=== PATIENT | male | born 1945 | race Caucasian/White ===

== ENCOUNTER 2017-04-16 18:56 | Inpatient (IN) ==
[2017-04-16] MEDS ORDERED: 0.9 % Sodium Chloride 500 ML IVC ONE (19:43)
[2017-04-16 20:10] LABS: Basophils # 0.1 K/mcL (0.0-0.2); Basophils % 1.1 %; Eosinophils # 0.3 K/mcL (0.0-0.6); Eosinophils % 4.8 %; Hemoglobin 14.2 g/dL (12.9-16.9); Immature Granulocytes % 0.3 % (0-4); Lymphocytes % 29.9 %; Mean Corpuscular HGB Conc 33.8 g/dL (31.6-35.5); Mean Corpuscular Hemoglobin 30.5 pg (28.0-33.3); Mean Corpuscular Volume 90.1 fL (83.0-100.0); Mean Platelet Volume 11.4 fL (9.4-12.4); Monocytes # 0.4 K/mcL (0.0-1.3); Monocytes % 6.3 %; Neutrophils # 3.8 K/mcL (1.6-8.9); Platelet Count 138 K/mcL (140-400); Red Blood Count 4.66 M/mcL (4.19-5.50); Red Cell Distribution Width 14.3 % (11.5-14.5); Segmented Neutrophils % 57.6 %
[2017-04-16 20:14] LABS: INR 1.6; Prothrombin Time 17.3 Seconds (9.4-12.1)
--- NOTE | 2017-04-16 20:16 | Emergency Department Note ---
START Narrative - START START: I, Reggie Rojas, examined this patient and my medical decision-making was reviewed with the FELT CUTTING MACHINE OPERATOR/PA/Advanced Practice Nurse/Resident Physician. I agree with the documented findings, disposition and treatment plan as described except to the extent set forth below. 71-year-old male presents emergency Department with concerns of palpitations. Patient was referred to the emergency department by his primary care provider. Patient states he has felt lightheaded and weak over the past few days. He has a heart rate that is around 122 during the evaluation however he does have significant variability during the exam. Patient denies chest pain emergency department. He denies feeling short of breath at rest. Denies recent swelling of his lower extremities. Patient takes multiple medications for control of atrial fibrillation. He has ventricularly paced rhythm that is tachycardic. Patient denies fever, chills, nausea, vomiting, diarrhea. Patient states this is had occurred to him in the past however he does not know the etiology. Patient is pending laboratory evaluation and imaging at this time. He will likely be admitted to the hospital for further care and evaluation of his tachycardia.
[2017-04-16 20:21] LABS: Bilirubin,Urine Negative (Negative); Blood,Urine Negative (Negative); Clarity,Urine Clear (Clear); Color,Urine Yellow (Yellow); Glucose,Urine (UA) >=1000 mg/dL (Normal); Ketones,Urine Negative (Negative); Leukocyte Esterase,Urine Negative (Negative); Nitrite,Urine Negative (Negative); Protein,Urine 30 mg/dL (Neg-Trace); Specific Gravity,Urine 1.023 (1.010-1.025); Urobilinogen,Urine Normal (Normal)
[2017-04-16 20:23] LABS: Bacteria,Urine None Seen per hpf (None-Few); Hyaline Casts,Urine None Seen per lpf (None-Few); RBC,Urine 0-3 per hpf (0-3); Squamous Epithelial Cell,Urine Moderate per lpf (None-Few); WBC,Urine 0-3 per hpf (0-3)
[2017-04-16 20:29] LABS: BUN/Creatinine Ratio 14 (6-26); Blood Urea Nitrogen 22 mg/dL (8-23); Calcium 9.2 mg/dL (8.6-10.3); Carbon Dioxide 25 mEq/L (23-29); Chloride 101 mEq/L (98-107); Glucose 358 mg/dL (70-105); Osmolality,Calculated 296 (280-300); Potassium 4.2 mEq/L (3.5-5.1); Sodium 134 mEq/L (136-145); Troponin I < 0.03 ng/mL (< 0.04); eGFR For African Americans 54 (> 60); eGFR For Non-African Americans 45 (> 60)
[2017-04-16 20:42] LABS: Thyroid Stimulating Hormone 3.898 mcIU/mL (0.340-5.600)
--- NOTE | 2017-04-16 20:43 | Emergency Department Note ---
Disposition Clinical Impression: Tachycardia Afib Qualifiers: Atrial fibrillation type: unspecified Qualified Code(s): I48.91 - Unspecified atrial fibrillation Disposition: Admitted As Inpatient Condition: Fair Referrals: Nova Ames MD [Primary Care Provider] - Forms: ED Satisfaction Letter Time of Disposition: 22:22 General Adult HPI - General Chief complaint: ED Arrhythmia/Palpitations Stated complaint: High heart rate Time Seen by Provider: 04/16/17 19:13 Source: patient, EMS Mode of arrival: EMS Limitations: physical limitation Nursing Notes Reviewed: Yes Vital Signs Reviewed: Yes - History of Present Illness HPI Narrative: 71-year-old male with significant past medical history of stroke with residual left-sided weakness along with hypertension and diabetes presenting to the emergency department with chief complaint of palpitations. Patient states for the past 3 days he is not having palpitations. He denies any chest pain or shortness of breath but does state when he stands he gets very weak and feels dizzy. He states this has happened once previously and his electric meter technician discontinued one medication that he is unsure of what medication this was. Patient was sent here her PCP for evaluation. Patient does have history of pacemaker. Denies any DC or stents. Patient denies any recent illnesses, fevers, abdominal pain. Patient is currently on Coumadin for anticoagulation. Pain Scale: 0 - Related Data Allergies Allergy/AdvReac Type Severity Reaction Status Date / Time Penicillins Allergy Hives Verified 04/16/17 22:12 All systems ED: reviewed and negative except as stated. Constitutional: Reports: weakness Cardiovascular: Reports: palpitations Past Medical History - Past Medical History Attestation: Yes The following information was validated with the patient. Medical history: Reports: atrial fibrillation, GERD, hyperlipidemia, hypertension, TIA Psychiatric history: Reports: depression - Social History Smoking Status: Never smoker Smokeless Tobacco Status: No Alcohol use: Reports: none Drug use: Reports: none Physical Exam - General Limitations: physical limitation General appearance: alert, in no apparent distress - Head Head exam: atraumatic, normocephalic, normal inspection - Eye Eye exam: Present: normal appearance. Absent: scleral icterus, conjunctival injection - ENT ENT exam: mucous membranes dry - Neck Neck exam: Present: normal inspection, full ROM. Absent: tenderness, meningismus - Chest Chest inspection: Present: normal inspection, symmetric chest wall rise. Absent : tenderness, rash - Respiratory Respiratory exam: Present: normal lung sounds bilaterally. Absent: respiratory distress, wheezes - Cardiovascular Cardiovascular exam: Present: tachycardia, normal heart sounds - Abdominal Exam Abdominal exam: Present: soft, Non-Tender. Absent: distention, guarding, rebound - Extremities Exam Extremities exam: Present: other (Left-sided weakness in upper and lower extremities. Baseline for patient.) - Neurological Exam Neurological exam: Present: alert, oriented X3 - Psychiatric Psychiatric exam: Present: normal affect, normal mood - Skin Skin exam: Present: warm, dry Course Course Narrative: 71-year-old male presenting to the emergency department with complaint of palpitations. Patient's EKG is ventricularly paced. Physical exam within normal limits. Patient is tachycardic in the room at 122 bpm but otherwise vital signs stable. Patient has no complaints at this time but does state he feels weak when standing. We will perform basic laboratory workup including CBC , BMP, magnesium, PT/INR. Also perform a chest x-ray. We will try to interrogate the patient's pacemaker as well. Patient is alert and oriented 3 in the room. Disposition pending these results. He agrees with this plan. - Reevaluation(s) Reevaluation #1: Patient's INR subtherapeutic at 1.6. All other labs unchanged from previous. We interrogated the pacemaker which showed most likely rhythm of atrial tachycardia versus atrial fibrillation. Patient does have history of atrial fibrillation. I spoke with the electric meter technician on-call Dr. Acevedo who agrees to start the patient on a Cardizem drip at this time until physician will consult tomorrow morning. We will plan to admit the patient at this time. I spoke to the admitting hospitalist Dr. Villavicencio who agrees to accept the patient this time. Patient is alert and oriented 3 in the room. Stable vital signs. Vital Signs Temperature 97.6 F 04/16/17 18:58 Pulse Rate 122 04/16/17 18:58 Respiratory Rate 20 04/16/17 18:58 Blood Pressure 169/109 04/16/17 18:58 O2 Sat by Pulse Oximetry 97 04/16/17 18:58 Temperature 97.6 F 04/16/17 18:58 Pulse Rate 122 04/16/17 18:58 Respiratory Rate 20 04/16/17 18:58 Blood Pressure 169/109 04/16/17 18:58 O2 Sat by Pulse Oximetry 97 04/16/17 18:58 Oxygen Delivery Oxygen Delivery Room Air Medical Decision Making - Lab Data Result diagrams: 04/16/17 19:56 04/16/17 19:56 Lab Results 04/16/17 04/16/17 04/16/17 Range/Units 19:56 19:56 19:56 WBC 6.6 (4.3-11.1) K/mcL RBC 4.66 (4.19-5.50) M/mcL Hgb 14.2 (12.9-16.9) g/dL Hct 42.0 (37.5-50.1) % MCV 90.1 (83.0-100.0) fL MCH 30.5 (28.0-33.3) pg MCHC 33.8 (31.6-35.5) g/dL RDW 14.3 (11.5-14.5) % Plt Count 138 L (140-400) K/mcL MPV 11.4 (9.4-12.4) fL Immature Gran % 0.3 (0-4) % Seg Neutrophils % 57.6 % Lymphocytes % 29.9 % Monocytes % 6.3 % Eosinophils % 4.8 % Basophils % 1.1 % Neutrophils # 3.8 (1.6-8.9) K/mcL Lymphocytes # 2.0 (0.6-4.6) K/mcL Monocytes # 0.4 (0.0-1.3) K/mcL Eosinophils # 0.3 (0.0-0.6) K/mcL Basophils # 0.1 (0.0-0.2) K/mcL PT 17.3 H (9.4-12.1) Seconds INR 1.6 APTT 31.0 (26.0-36.0) Seconds Sodium 134 L (136-145) mEq/L Potassium 4.2 (3.5-5.1) mEq/L Chloride 101 (98-107) mEq/L Carbon Dioxide 25 (23-29) mEq/L BUN 22 (8-23) mg/dL Creatinine 1.54 H (0.70-1.30) mg/dL Est GFR ( Amer) 54 L (> 60) Est GFR (Non-Af Amer) 45 L (> 60) BUN/Creatinine Ratio 14 (6-26) Glucose 358 H (70-105) mg/dL Calculated Osmolality 296 (280-300) Calcium 9.2 (8.6-10.3) mg/dL Magnesium (1.6-2.6) mg/dL Troponin I < 0.03 (< 0.04) ng/mL TSH 3.898 (0.340-5.600) mcIU/mL Urine Color (Yellow) Urine Clarity (Clear) Urine pH (5.0-8.0) pH Units Ur Specific [place] (1.010-1.025) Urine Protein (Neg-Trace) mg/dL Urine Glucose (UA) (Normal) mg/dL Urine Ketones (Negative) mg/dL Urine Blood (Negative) Urine Nitrite (Negative) Urine Bilirubin (Negative) Urine Urobilinogen (Normal) mg/dL Ur Leukocyte Esterase (Negative) Urine Microscopic RBC (0-3) per hpf Urine Microscopic WBC (0-3) per hpf Ur Squamous Epith Cells (None-Few) per lpf Urine Bacteria (None-Few) per hpf Hyaline Casts (None-Few) per lpf Ur Culture Indicated? (NO) 04/16/17 04/16/17 Range/Units 19:56 20:06 WBC (4.3-11.1) K/mcL RBC (4.19-5.50) M/mcL Hgb (12.9-16.9) g/dL Hct (37.5-50.1) % MCV (83.0-100.0) fL MCH (28.0-33.3) pg MCHC (31.6-35.5) g/dL RDW (11.5-14.5) % Plt Count (140-400) K/mcL MPV (9.4-12.4) fL Immature Gran % (0-4) % Seg Neutrophils % % Lymphocytes % % Monocytes % % Eosinophils % % Basophils % % Neutrophils # (1.6-8.9) K/mcL Lymphocytes # (0.6-4.6) K/mcL Monocytes # (0.0-1.3) K/mcL Eosinophils # (0.0-0.6) K/mcL Basophils # (0.0-0.2) K/mcL PT (9.4-12.1) Seconds INR APTT (26.0-36.0) Seconds Sodium (136-145) mEq/L Potassium (3.5-5.1) mEq/L Chloride (98-107) mEq/L Carbon Dioxide (23-29) mEq/L BUN (8-23) mg/dL Creatinine (0.70-1.30) mg/dL Est GFR ( Amer) (> 60) Est GFR (Non-Af Amer) (> 60) BUN/Creatinine Ratio (6-26) Glucose (70-105) mg/dL Calculated Osmolality (280-300) Calcium (8.6-10.3) mg/dL Magnesium 1.8 (1.6-2.6) mg/dL Troponin I (< 0.04) ng/mL TSH (0.340-5.600) mcIU/mL Urine Color Yellow (Yellow) Urine Clarity Clear (Clear) Urine pH 6.0 (5.0-8.0) pH Units Ur Specific [place] 1.023 (1.010-1.025) Urine Protein 30 H (Neg-Trace) mg/dL Urine Glucose (UA) >=1000 H (Normal) mg/dL Urine Ketones Negative (Negative) mg/dL Urine Blood Negative (Negative) Urine Nitrite Negative (Negative) Urine Bilirubin Negative (Negative) Urine Urobilinogen Normal (Normal) mg/dL Ur Leukocyte Esterase Negative (Negative) Urine Microscopic RBC 0-3 (0-3) per hpf Urine Microscopic WBC 0-3 (0-3) per hpf Ur Squamous Epith Cells Moderate H (None-Few) per lpf Urine Bacteria None Seen (None-Few) per hpf Hyaline Casts None Seen (None-Few) per lpf Ur Culture Indicated? NO (NO) - EKG Data EKG #1 EKG attestation: Yes I reviewed and interpreted this EKG. EKG results narrative: Ventricularly paced. 122 bpm. CA interval 194, QRS 186, QTc 453. Does not meet Sgarbossa criteria. Compared to previous EKG dated on 12/16/2013. New tachycardia but otherwise no change.
[2017-04-16] MEDS ORDERED: 0.9 % Sodium Chloride 500 ML ONE (22:36)
--- NOTE | 2017-04-17 00:18 | Internal Med History&Physical ---
Date of Encounter: 04/16/17 Time of Encounter: 23:40 Assessment and Plan (1) Afib Current visit: Yes Status: Acute Patient with tachycardia with ventricular paced rhythm with underlying atrial tachycardia or A. fib per pacemaker interrogation. Started on intravenous Cardizem drip per cardiology recommendations. Will continue. High risk for complications. Cardiology consult. On anticoagulation with Coumadin. Will continue Qualifiers: Atrial fibrillation type: paroxysmal Qualified Code(s): I48.0 - Paroxysmal atrial fibrillation (2) Tachycardia Current visit: Yes Status: Acute (3) Chronic kidney disease, stage III (moderate) Current visit: Yes Status: Chronic At baseline. Monitor renal function. Avoid nephrotoxic agents (4) Diabetes mellitus Current visit: Yes Status: Chronic Uncontrolled. Will place patient on his long-acting insulin and add sliding scale coverage. Monitor blood sugars closely. Check A1c. Qualifiers: Diabetes mellitus type: type 2 Diabetes mellitus complication status: with kidney complications Diabetes mellitus complication detail: with chronic kidney disease Diabetes mellitus ferry terminal agent insulin use: with fci use Chronic kidney disease stage: stage 3 (moderate) Qualified Code(s): E11.22 - Type 2 diabetes mellitus with diabetic chronic kidney disease; N18.3 - Chronic kidney disease, stage 3 (moderate); N18.3 - Chronic kidney disease, stage 3 ( moderate); Z79.4 - long term care social worker (current) use of insulin; Z79.4 - [facility] ( current) use of insulin; Z79.4 - [facility] (current) use of insulin; Z79.4 - long term care social worker (current) use of insulin (5) Essential hypertension Current visit: Yes Status: Chronic Monitor blood pressure. Resume home medications. Internal Medicine - H&P: HPI Chief complaint: Palpitations Admitted From: Emergency Dept Plans for Post Hospital Care: Home History of present illness: Mr. Vigil is a 71 year old male patient with history of diabetes, hypertension , permanent pacemaker who presented to the ER with complaints of palpitations. His says that he has been having episodes of palpitations over the past 2-3 months that have been intermittent but over the past day or 2, he has had persistent palpitations. He also complains of dizziness and lightheadedness. No chest pain. No shortness of breath. He underwent pacemaker interrogation and check 6 months back. No recent change to his medications. Past Med Surg Social Fam HX - Past Medical History Attestation: Yes The following information was validated with the patient. Source: patient Medical history: atrial fibrillation, GERD, hyperlipidemia, hypertension, TIA Psychiatric history: depression - Social History Smoking Status: Never smoker Smokeless Tobacco Status: No Alcohol use: none Drug use: none - Additional Family History Additional family history: Reviewed and found to be noncontributory at this time Internal Medicine - H&P: Meds Albuterol Sulfate [Albuterol Inhaler] 2 puff IH Q4H PRN 04/16/17 [History] Allopurinol [Zyloprim 300 MG] 300 mg PO DAILY 04/16/17 [History] Aspirin Enteric Coated [Aspirin EC] 81 mg PO DAILY 04/16/17 [History] Baclofen [Baclofen] 20 mg PO BID 04/16/17 [History] GlipiZIDE [Glipizide ER] 10 mg PO DAILY 04/16/17 [History] Insulin DETEMIR [Levemir Flextouch] 30 unit SQ BID 04/16/17 [History] Lisinopril [Zestril] 10 mg PO DAILY 04/16/17 [History] Metoprolol Succinate [Metoprolol Succinate] 50 mg PO DAILY 04/16/17 [History] PARoxetine HCl [Paroxetine HCl] 40 mg PO DAILY 04/16/17 [History] Pantoprazole Sodium [Pantoprazole Sodium] 40 mg PO DAILY 04/16/17 [History] Rosuvastatin Calcium [Rosuvastatin Calcium] 40 mg PO HS 04/16/17 [History] Terazosin HCl [Terazosin HCl] 10 mg PO HS 04/16/17 [History] Warfarin [Coumadin] 3 mg PO 1800 04/16/17 [History] 3 Allergy/AdvReac Type Severity Reaction Status Date / Time Penicillins Allergy Hives Verified 04/16/17 22:12 All Systems PM: A 10-system review of systems was performed and is negative for pertinent findings except as documented above in the HPI. - Constitutional Constitutional: no chills, no fever(s), no night sweats - EENT Eyes: no change in vision, no discharge, no pain, no photophobia Ears: no ear discharge, no ear pain, no tinnitus Nose, mouth and throat: no dysphagia, no nasal discharge, no neck pain, no sore throat - Cardiovascular Cardiovascular ROS IM: lightheadedness, palpitations, no chest pain, no diaphoresis, no dyspnea, no syncope - Respiratory Respiratory: no cough, no dyspnea, no wheezing, no excessive phlegm production - Gastrointestinal Gastrointestinal: no abdominal pain, no diarrhea, no hematemesis, no hematochezia, no melena, no nausea, no vomiting - Musculoskeletal Musculoskeletal ROS IM: no numbness, no tingling - Integumentary Integumentary IM: no rash, no unusual bruising - Neurological Neurological ROS: no confusion, no convulsions, no focal weakness, no numbness, no tingling, no tremor(s) - Hematologic/Lymphatic Hematologic/Lymphatic: no easy bruising - Constitutional Vitals: Temp Pulse Resp BP Pulse Ox 97.6 F 120 20 110/83 94 04/16/17 18:58 04/16/17 22:21 04/17/17 00:02 04/17/17 00:02 04/16/17 22:21 General appearance: Present: cooperative, mild distress, A&O X 3, answers questions appropriately - Neck Neck exam general surgery: Present: supple, trachea midline. Absent: lymphadenopathy - Respiratory Respiratory exam: Present: CTAB. Absent: accessory muscle use, rales, rhonchi, wheezes - Cardiovascular Cardiovascular exam: Present: RRR, +S1, +S2, tachycardia. Absent: diastolic murmur, gallop, rubs, systolic murmur - GI/Abdominal GI/Abdominal exam: Present: normal bowel sounds, soft, no peritoneal signs. Absent: distended, tenderness - Extremities Exam Extremities exam: Present: warm, radial pulses palpable and symmetrical. Absent : calf tenderness, cyanotic, pedal edema - Neurological Exam Neurological exam: Present: CN II-XII intact, oriented X3, no focal deficits. Absent: facial droop, speech deficit Internal Med - H&P Results - Labs CBC & Chem 7: 04/16/17 19:56 04/16/17 19:56 - EKG Data -: EKG Interpreted by Myself - EKG Data EKG comments: 04/17/17 00:25 V-paced tachycardia
[2017-04-17] MEDS ORDERED: Naloxone 0.4 MG/ML INJ IVP PRN (00:28)
[2017-04-17] MEDS ORDERED: D5% in Water 1,000 ML IVC PRN (00:31)
[2017-04-17] MEDS ORDERED: *HR* Dextrose 50 % in Water (Syg) 50 ML SYRINGE IVP PRN (00:31)
[2017-04-17] MEDS ORDERED: Dextrose Gel 15 GM/37.5 ML TUBE PO PRN ×2 (00:31)
[2017-04-17] MEDS ORDERED: NON-FORMULARY MEDICATION 1 EACH EACH (Insulin Detemir [Levemir Flextouch] 30 UNIT) SQ SCH (00:32)
[2017-04-17] MEDS: Insulin DETEMIR 100 UNIT/ML X5UNITS SQ SCH ×3 (01:38→21:24)
[2017-04-17] MEDS ORDERED: *HR* Warfarin 3 MG TABLET PO ONE ×2 (02:00→18:00)
[2017-04-17] MEDS ORDERED: *HR* Metoprolol 5 MG/5 ML VIAL IVP PRN (02:02)
[2017-04-17] MEDS: Metoprolol XL (24 HR) Succ 50 MG TAB.ER.24H PO SCH ×2 (04:41→08:27)
[2017-04-17 04:58] LABS: INR 1.6; Prothrombin Time 17.2 Seconds (9.4-12.1)
[2017-04-17] MEDS ORDERED: 0.9 % Sodium Chloride 500 ML ONE (05:45)
[2017-04-17] MEDS: Baclofen 10 MG TABLET PO SCH ×2 (08:27→21:24)
[2017-04-17] MEDS: Aspirin Enteric Coated 81 MG Tablet PO SCH (08:27)
[2017-04-17] MEDS: Insulin LISPRO 300 UNITS/3 ML VIAL SQ SCH ×4 (08:30→21:18)
[2017-04-17] MEDS ORDERED: Metoprolol XL (24 HR) Succ 50 MG TAB.ER.24H PO SCH (09:00)
--- NOTE | 2017-04-17 09:19 | Cardiology Consult Note ---
<Pau Sheridan Antoni - Last Filed: 04/17/17 09:44> Date of Encounter: 04/17/17 Time of Encounter: 09:00 Assessment and Plan (1) Afib Current Visit: Yes Status: Acute Hx of PAF, has been on Coumadin for AC (INR monitored by PCP). Per device report, increased episodes of AT/AF--146 days with >6 hours AT/AF. Sotalol d/c'ed June 2015 due to worsening renal function, increased episodes of PAF. Presented with increase in palpitations over the past 2-3 weeks, also reports recent flu-like symptoms. 12 hour tele: avg ML=085 afib, paced rhythm. Recommend rate control strategy. Will increase betablocker. Wean off cardizem gtt to keep HR less than 100--may need to add oral cardizem. Will decrease ACEi to allow for uptitration of BB, CCB. INR subtherapuetic, 1.6, goal 2-3. Pharmacy to dose coumadin as inpatient. Qualifiers: Atrial fibrillation type: persistent Qualified Code(s): I48.1 - Persistent atrial fibrillation (2) Chronic kidney disease, stage III (moderate) Current Visit: Yes Status: Chronic SCr stable. (3) Essential hypertension Current Visit: Yes Status: Chronic Elevated upon admission. Now controlled. Continue to monitor and change medications accordingly. (4) CAD (coronary artery disease) Current Visit: Yes Status: Chronic Hx of CABG in 2006. [facility] 2013: s/p patent 3 of 3 bypass grafts--medical management recommended. Denies chest pain/discomfort. Continue home CV medications including asa, statin , betablocker. Qualifiers: Coronary Disease-Associated Artery/Lesion type: bypass graft [place] vs. transplanted heart: [place] heart Associated angina: without angina Qualified Code(s): I25.810 - Atherosclerosis of coronary artery bypass graft(s) without angina pectoris Discussion w patient/family: The assessment and plan as outlined above was discussed with the patient and/or family members who expressed understanding and agreement. All questions were answered. Thank you for involving us in the care of your patient. Please call with any questions. The patient will be discussed and reviewed with Dr. Acevedo; changes to be made accordingly. History of Present Illness Consult date: 04/17/17 Requesting physician: Juani Salas Consult reason: afib Chief complaint: palpitations History of present illness: Mr. Vigil is a 71 year old male with PMHx significant for CKD, HTN, PAF ( coumadin), CAD s/p CABG (2006), hx of recovered ischemic cardiomyopathy, FELICITY, and heart block s/p BiV PPM who presented to the ED with complaints of palpitations for the past several weeks. He notes recent flu-like illness--cough , congestion, aches--since then, palpitations have been more frequent. Associated symptoms include mild shortness of breath. He denies chest pain discomfort or increase in leg edema. Prior CV testing: TTE 11/06/13: LVEF 60%, mild TR, normal wall motion LHC 07/2012: s/p 3 of 3 patent bypass grafts; SVG-mLCx patent, SVG-1st diagonal patent, and CHING-mLAD patent. Past Med Surg Social Fam HX - Past Medical History Attestation: Yes The following information was validated with the patient. Source: patient Medical history: atrial fibrillation, cardiomyopathy, coronary artery disease, GERD, hyperlipidemia, hypertension, TIA Psychiatric history: depression - Social History Smoking Status: Never smoker Smokeless Tobacco Status: No Alcohol use: none Drug use: none - Family History Father Hx Family Cardiac Disorders: Yes (Pacemaker) Mother History Unknown: Yes Adopted: No Hx Family Cardiac Disorders: Yes ("Arteries clogged") Hx Family Endocrine Disorder: Yes (Diabetic) Medications and Allergies Albuterol Sulfate [Albuterol Inhaler] 2 puff IH Q4H PRN 04/16/17 [History] Allopurinol [Zyloprim 300 MG] 300 mg PO DAILY 04/16/17 [History] Aspirin Enteric Coated [Aspirin EC] 81 mg PO DAILY 04/16/17 [History] Baclofen [Baclofen] 20 mg PO BID 04/16/17 [History] GlipiZIDE [Glipizide ER] 10 mg PO DAILY 04/16/17 [History] Insulin DETEMIR [Levemir Flextouch] 30 unit SQ BID 04/16/17 [History] Lisinopril [Zestril] 10 mg PO DAILY 04/16/17 [History] Metoprolol Succinate [Metoprolol Succinate] 50 mg PO DAILY 04/16/17 [History] PARoxetine HCl [Paroxetine HCl] 40 mg PO DAILY 04/16/17 [History] Pantoprazole Sodium [Pantoprazole Sodium] 40 mg PO DAILY 04/16/17 [History] Rosuvastatin Calcium [Rosuvastatin Calcium] 40 mg PO HS 04/16/17 [History] Terazosin HCl [Terazosin HCl] 10 mg PO HS 04/16/17 [History] Warfarin [Coumadin] 3 mg PO 1800 04/16/17 [History] 3 Allergy/AdvReac Type Severity Reaction Status Date / Time Penicillins Allergy Hives Verified 04/16/17 22:12 All Systems Review: The remainder of the systems were reviewed and are negative - Cardiovascular Cardiovascular: as per HPI Physical Examination Vital Signs, Last 4 Hours Temp Pulse Resp BP Pulse Ox 04/17/17 06:47 97.5 F L 106 17 120/78 95 General: Conversant HEENT: Atraumatic, Normocephaly Cardiac: Other (irregulary irregular) Neuro: Alert and responsive Abdomen: Soft Skin: No rashes noted on visualized skin Musculoskeletal: No Chest Wall Tenderness Extremities: No Edema, Normal Pulses Results 04/16/17 19:56 04/16/17 19:56 Lab Results 04/17/17 04/17/17 03:46 03:46 INR 1.6 Troponin I 0.03 Active Medications Albuterol Sulfate (Albuterol Inhaler) 2 puff IH [id number] PRN PRN Reason: Shortness Of Breath Stop: 10/17/17 00:31 Allopurinol (Zyloprim) 300 mg PO DAILY STACIE Stop: 10/17/17 09:01 Last Admin: 04/17/17 08:27 Dose: 300 mg Aspirin (Aspirin Ec) 81 mg PO DAILY STACIE Stop: 10/17/17 09:01 Last Admin: 04/17/17 08:27 Dose: 81 mg Baclofen (Lioresal) 20 mg PO BID STACIE Stop: 10/17/17 09:01 Last Admin: 04/17/17 08:27 Dose: 20 mg Dextrose/Water (Dextrose 50% (Syg)) 25 ml IVP AD PRN PRN Reason: Hypoglycemia Stop: 10/17/17 00:32 Glucagon (Glucagen) 1 mg IM ONCE PRN PRN Reason: Hypoglycemia Stop: 10/17/17 00:32 Glucose (Gluctose) 15 gm PO ONCE PRN PRN Reason: Hypoglycemia Stop: 10/17/17 00:32 Glucose (Gluctose) 30 gm PO ONCE PRN PRN Reason: Hypoglycemia Stop: 10/17/17 00:32 Diltiazem HCl 125 mg/ Sodium (Chloride) 125 mls @ 5 mls/hr IVC .Q24H STACIE; 5 MG/ HR PRN Reason: Protocol Stop: 10/16/17 22:31 Last Titration: 04/17/17 08:46 Dose: Infused Dextrose (Dextrose 5%) 1,000 mls @ 100 mls/hr IVC .Q10H PRN PRN Reason: HYPOGLYCEMIA Stop: 10/17/17 00:32 Insulin Detemir (Levemir) 30 unit SQ BID [facility] Stop: 10/17/17 00:46 Last Admin: 04/17/17 01:38 Dose: 30 unit Insulin Human Lispro (Humalog) 0 units SQ TIDAC [facility] PRN Reason: Protocol Stop: 10/17/17 07:31 Last Admin: 04/17/17 08:30 Dose: Not Given Insulin Human Lispro (Humalog) 0 units SQ [facility] PRN Reason: Protocol Stop: 10/17/17 21:01 Lisinopril (Zestril) 10 mg PO DAILY [facility] PRN Reason: Protocol Stop: 10/17/17 09:01 Last Admin: 04/17/17 08:27 Dose: 10 mg Metoprolol Succinate (Toprol Xl) 50 mg PO DAILY [facility] Stop: 10/17/17 04:01 Last Admin: 04/17/17 08:27 Dose: 50 mg Metoprolol Tartrate (Lopressor) 5 mg IVP Q6HR PRN PRN Reason: Tachyarrhythmias Stop: 10/17/17 02:03 Last Admin: 04/17/17 02:21 Dose: 5 mg Naloxone HCl (Narcan) 0.4 mg IVP Q2MIN PRN PRN Reason: SEE COMMENTS Stop: 10/17/17 00:29 Omeprazole (Prilosec) 40 mg PO DAILY [facility] Stop: 10/17/17 09:01 Last Admin: 04/17/17 08:27 Dose: 40 mg Paroxetine HCl (Paxil) 40 mg PO DAILY [facility] Stop: 10/17/17 09:01 Last Admin: 04/17/17 08:27 Dose: 40 mg Rosuvastatin Calcium (Crestor) 40 mg PO [facility] Stop: 10/17/17 21:01 Terazosin HCl (Hytrin) 10 mg PO HS [facility] Stop: 10/17/17 21:01 Warfarin Sodium (Coumadin Perpt) 1 each PO DAILY@1800 PRN PRN Reason: SEE COMMENTS Stop: 10/17/17 18:01 Warfarin Sodium (Coumadin) 3 mg PO ONCE@1800 ONE Stop: 04/17/17 18:01 - Imaging and Cardiology Echo: report reviewed Cardiac cath: report reviewed Other Results: 12 hour tele: avg CV=019 afib, paced rhythm. - EKG Interpretation EKG results cardiology: personally reviewed Consult Discharge Plan - Plan Referrals: Nova Ames MD [Primary Care Provider] - <Fay Acevedo - Last Filed: 04/17/17 11:02> Date of Encounter: 04/17/17 - Attending Attestation I examined this patient and my medical decision-making was reviewed with the DOORSHAKER. I agree with the documented findings, disposition and treatment plan as described. Mr. Vigil is known to me from the outpatient setting. He has a known history of PAF and was maintained on sotalol until about 2014 when renal function started to worsen. He was placed on metoprolol and doing well since then. More recently, the patient states he developed a viral type illness with general malaise, dizziness, cough and sinusitis. This was associated with palpitations which prompted his visit. Presently HR's 110's. Will increase beta sarah and consider addition of PO cardizem. ACEI will be decreased to accommodate for blood pressure with these medication changes. Echo pending. Pharmacy to dose coumadin. Assessment and Plan Discussion w patient/family: The assessment and plan as outlined above was discussed with the patient and/or family members who expressed understanding and agreement. All questions were answered. Thank you for involving us in the care of your patient. Please call with any questions. History of Present Illness History of present illness: Mr. Vigil is a 71 year old male All Systems Review: The remainder of the systems were reviewed and are negative Results 04/16/17 19:56 04/16/17 19:56 Lab Results 04/17/17 04/17/17 03:46 03:46 INR 1.6 Troponin I 0.03
[2017-04-17] MEDS ORDERED: 0.9 % Sodium Chloride 500 ML IVC ONE (11:39)
--- NOTE | 2017-04-17 15:18 | Internal Med Progress Note ---
Date of Encounter: 04/17/17 Time of Encounter: 13:30 - Assessment and plan (1) Afib Current Visit: Yes Status: Acute Assessment and plan: per hx. presented with palpitations. Evaluated by Cardiology who noted recent device report, increased episodes of AT/Af. Home BB increased per Cardiology. Wean off cardizem gtt to keep HR less than 100--may need to add oral cardizem. ACEi to allow for uptitration of BB, CCB. Cont home Coumadin Qualifiers: Atrial fibrillation type: persistent Qualified Code(s): I48.1 - Persistent atrial fibrillation (2) CAD (coronary artery disease) Current Visit: Yes Status: Chronic Assessment and plan: per hx. Denies CP. Continue home ASA, BB, statin Qualifiers: Coronary Disease-Associated Artery/Lesion type: bypass graft [place] vs. transplanted heart: [place] heart Associated angina: without angina Qualified Code(s): I25.810 - Atherosclerosis of coronary artery bypass graft(s) without angina pectoris (3) Chronic kidney disease, stage III (moderate) Current Visit: Yes Status: Chronic Assessment and plan: per hx. Renal function stable. Avoid nephrotoxic agents as possible. Intermittently monitor renal function (4) Diabetes mellitus Current Visit: Yes Status: Chronic Assessment and plan: per hx. Blood sugars uncontrolled. Holding home oral hypoglycemics. Cont home long-acting. SSI. Monitor blood sugar and titrate PRN Qualifiers: Diabetes mellitus type: type 2 Diabetes mellitus complication status: with kidney complications Diabetes mellitus complication detail: with chronic kidney disease Diabetes mellitus intermission coordinator insulin use: with snf use Chronic kidney disease stage: stage 3 (moderate) Qualified Code(s): E11.22 - Type 2 diabetes mellitus with diabetic chronic kidney disease; N18.3 - Chronic kidney disease, stage 3 (moderate); N18.3 - Chronic kidney disease, stage 3 ( moderate); Z79.4 - residential (current) use of insulin; Z79.4 - residential ( current) use of insulin; Z79.4 - exterminator termite (current) use of insulin; Z79.4 - residential (current) use of insulin (5) Essential hypertension Current Visit: Yes Status: Chronic Assessment and plan: per hx. BP elevated on arrival and now hypotensive with Cardizem drip. BP improved with IV fluid bolus. Cont BB at increased dose. Monitor BP (6) DVT prophylaxis Current Visit: Yes Status: Acute Assessment and plan: coumadin - Subjective Interval history: Seen and examined at bedside. Patient is new to me, information obtained from chart review and patient report. Patient says he feels about the same, still with palpitation and fluttering sensation in her heart. No shortness of breath. No chest pain. - Constitutional Vitals: Temp Pulse Resp BP Pulse Ox 97.6 F 112 17 87/57 96 04/17/17 11:22 04/17/17 11:22 04/17/17 11:22 04/17/17 11:22 04/17/17 11:22 General appearance: Present: cooperative, A&O X 3, answers questions appropriately - Head Head exam: Present: atraumatic, normocephalic - Eye Eye exam: Present: PERRL, conjuntiva pink, sclera anicteric Pupils: Present: PERRL - Neck Neck exam general surgery: Present: supple, trachea midline. Absent: lymphadenopathy - Respiratory Respiratory exam: Present: CTAB. Absent: accessory muscle use, rales, rhonchi, wheezes - Cardiovascular Cardiovascular exam: Present: irregular rhythm, +S1, +S2, tachycardia. Absent: diastolic murmur, gallop, rubs, systolic murmur - GI/Abdominal GI/Abdominal exam: Present: normal bowel sounds, soft, no peritoneal signs. Absent: distended, tenderness - Extremities Exam Extremities exam: Present: warm, radial pulses palpable and symmetrical. Absent : calf tenderness, cyanotic, pedal edema - Neurological Exam Neurological exam: Present: CN II-XII intact, oriented X3, no focal deficits. Absent: pronater drift, facial droop, speech deficit - Skin Skin exam: Present: dry, intact Internal Medicine: Result - Labs CBC & Chem 7: 04/16/17 19:56 04/16/17 19:56 Labs: Cardiac Enzymes 04/17/17 Range/Units 03:46 Troponin I 0.03 (< 0.04) ng/mL - ABG Interpretation ABG results: PT/INR, D-dimer PT 17.2 Seconds (9.4-12.1) H 04/17/17 03:46 Consult Discharge Plan - Plan Referrals: Nova Ames MD [Primary Care Provider] -
[2017-04-17] MEDS ORDERED: Warfarin perPT PO PRN (18:00)
--- NOTE | 2017-04-17 19:49 | Electrocardiograph Report ---
[place] [id number] Test Date: 2017-04-16 Pat Name: Andrew Vigil Department: 104 Room: 3B Gender: M Bus Driver Supervisor: : 1945 Requested By: Reggie Rojas Order Number: [id number] Reading MD: Yousif Baxter MD Measurements Intervals [place] Rate: 122 P: 234 MT: 194 QRS: 218 QRSD: 186 T: 61 QT: 380 QTc: 453 Interpretive Statements ELECTRONIC VENTRICULAR PACEMAKER Electronically Signed On 04-17-2017 19:47:13 EST by Yousif Baxter MD
[2017-04-17] MEDS: Acetaminophen 325 MG TABLET PO PRN (21:31)
[2017-04-18 06:06] LABS: INR 2.1; Prothrombin Time 22.8 Seconds (9.4-12.1)
[2017-04-18] MEDS: Metoprolol XL (24 HR) Succ 50 MG TAB.ER.24H PO SCH (08:34)
[2017-04-18] MEDS: Baclofen 10 MG TABLET PO SCH ×2 (08:34→21:53)
[2017-04-18] MEDS: Aspirin Enteric Coated 81 MG Tablet PO SCH (08:34)
[2017-04-18] MEDS: Insulin DETEMIR 100 UNIT/ML X5UNITS SQ SCH ×2 (08:43→21:54)
[2017-04-18] MEDS: Insulin LISPRO 300 UNITS/3 ML VIAL SQ SCH ×4 (08:43→21:54)
--- NOTE | 2017-04-18 10:29 | Cardiology Progress Note ---
Date of Encounter: 04/18/17 Time of Encounter: 09:00 Assessment and Plan (1) Afib Current Visit: Yes Status: Acute Hx of PAF, has been on Coumadin for AC (INR monitored by PCP). Per device report, increased episodes of AT/AF--146 days with >6 hours AT/AF. Sotalol d/c'ed June 2015 due to worsening renal function, increased episodes of PAF. Presented with increase in palpitations over the past 2-3 weeks, also reports recent flu-like symptoms. 12 hour tele: avg HR=73 afib, paced rhythm. Reviewed device check with Dr. Humphries--episodes of tachycardia are sinus. Will increase Toprol XL for improved rate control. Will decrease ACEi to allow for uptitration of BB, CCB. INR subtherapuetic, 1.6, goal 2-3. Pharmacy to dose coumadin as inpatient. Qualifiers: Atrial fibrillation type: persistent Qualified Code(s): I48.1 - Persistent atrial fibrillation (2) Chronic kidney disease, stage III (moderate) Current Visit: Yes Status: Chronic SCr stable. (3) Essential hypertension Current Visit: Yes Status: Chronic Elevated upon admission. Now controlled. Continue to monitor and change medications accordingly. (4) CAD (coronary artery disease) Current Visit: Yes Status: Chronic Hx of CABG in 2006. [facility] 2012: s/p patent 3 of 3 bypass grafts--medical management recommended. Denies chest pain/discomfort. Continue home CV medications including asa, statin , betablocker. Qualifiers: Coronary Disease-Associated Artery/Lesion type: bypass graft [place] vs. transplanted heart: [place] heart Associated angina: without angina Qualified Code(s): I25.810 - Atherosclerosis of coronary artery bypass graft(s) without angina pectoris Discussion w patient/family: The assessment and plan as outlined above was discussed with the patient and/or family members who expressed understanding and agreement. All questions were answered. Thank you for involving us in the care of your patient. Please call with any questions. The patient will be discussed and reviewed with Dr. Acevedo; changes to be made accordingly. Subjective Principal diagnosis: Afib with RVR Interval history: Seen and examined. No reported events overnight. Cardizem gtt d/ce'd due to hypotension yesterday. Patient reports headache this AM. Objective Vital Signs, Last 4 Hours Temp Pulse Resp BP Pulse Ox 04/18/17 07:23 98.1 F 82 16 115/68 93 General: Conversant, No Apparent Distress HEENT: Atraumatic, Normocephaly, Mucus Membranes Moist Cardiac: Other (irregularly irregular) Lungs: Normal Breath Sounds Neuro: Alert and responsive Abdomen: Soft Skin: No rashes noted on visualized skin Musculoskeletal: No Chest Wall Tenderness Extremities: No Edema, Normal Pulses Results 04/16/17 19:56 04/16/17 19:56 Lab Results 04/18/17 05:26 INR 2.1 Active Medications Acetaminophen (Tylenol) 650 mg PO Q6HR PRN PRN Reason: Mild Pain Stop: 10/17/17 19:53 Last Admin: 04/17/17 21:31 Dose: 650 mg Albuterol Sulfate (Albuterol Inhaler) 2 puff IH [id number] PRN PRN Reason: Shortness Of Breath Stop: 10/17/17 00:31 Allopurinol (Zyloprim) 300 mg PO DAILY STACIE Stop: 10/17/17 09:01 Last Admin: 04/18/17 08:34 Dose: 300 mg Aspirin (Aspirin Ec) 81 mg PO DAILY [facility] Stop: 10/17/17 09:01 Last Admin: 04/18/17 08:34 Dose: 81 mg Baclofen (Lioresal) 20 mg PO BID [facility]IE Stop: 10/17/17 09:01 Last Admin: 04/18/17 08:34 Dose: 20 mg Dextrose/Water (Dextrose 50% (Syg)) 25 ml IVP AD PRN PRN Reason: Hypoglycemia Stop: 10/17/17 00:32 Glucagon (Glucagen) 1 mg IM ONCE PRN PRN Reason: Hypoglycemia Stop: 10/17/17 00:32 Glucose (Gluctose) 15 gm PO ONCE PRN PRN Reason: Hypoglycemia Stop: 10/17/17 00:32 Glucose (Gluctose) 30 gm PO ONCE PRN PRN Reason: Hypoglycemia Stop: 10/17/17 00:32 Dextrose (Dextrose 5%) 1,000 mls @ 100 mls/hr IVC .Q10H PRN PRN Reason: HYPOGLYCEMIA Stop: 10/17/17 00:32 Insulin Detemir (Levemir) 30 unit SQ BID [facility] Stop: 10/17/17 00:46 Last Admin: 04/18/17 08:43 Dose: 30 unit Insulin Human Lispro (Humalog) 0 units SQ TIDAC [facility] PRN Reason: Protocol Stop: 10/17/17 07:31 Last Admin: 04/18/17 08:43 Dose: Not Given Insulin Human Lispro (Humalog) 0 units SQ HS [facility] PRN Reason: Protocol Stop: 10/17/17 21:01 Last Admin: 04/17/17 21:18 Dose: Not Given Lisinopril (Zestril) 2.5 mg PO DAILY STACIE PRN Reason: Protocol Stop: 10/18/17 09:01 Last Admin: 04/18/17 08:34 Dose: 2.5 mg Metoprolol Succinate (Toprol Xl) 50 mg PO DAILY [facility] Stop: 10/17/17 04:01 Last Admin: 04/18/17 08:34 Dose: 50 mg Metoprolol Tartrate (Lopressor) 5 mg IVP Q6HR PRN PRN Reason: Tachyarrhythmias Stop: 10/17/17 02:03 Last Admin: 04/17/17 02:21 Dose: 5 mg Naloxone HCl (Narcan) 0.4 mg IVP Q2MIN PRN PRN Reason: SEE COMMENTS Stop: 10/17/17 00:29 Omeprazole (Prilosec) 40 mg PO DAILY [facility] Stop: 10/17/17 09:01 Last Admin: 04/18/17 08:34 Dose: 40 mg Paroxetine HCl (Paxil) 40 mg PO DAILY [facility] Stop: 10/17/17 09:01 Last Admin: 04/18/17 08:34 Dose: 40 mg Rosuvastatin Calcium (Crestor) 40 mg PO HS [facility] Stop: 10/17/17 21:01 Last Admin: 04/17/17 21:24 Dose: 40 mg Terazosin HCl (Hytrin) 10 mg PO HS [facility] Stop: 10/17/17 21:01 Last Admin: 04/17/17 21:25 Dose: 10 mg Warfarin Sodium (Coumadin Perpt) 1 each PO DAILY@1800 PRN PRN Reason: SEE COMMENTS Stop: 10/17/17 18:01 - Imaging and Cardiology Echo: report reviewed Other Results: 12 hour tele: avg HR=73 paced. - EKG Interpretation EKG results cardiology: personally reviewed Consult Discharge Plan - Plan Referrals: Nova Ames MD [Primary Care Provider] -
[2017-04-18] MEDS: Acetaminophen 325 MG TABLET PO PRN (12:50)
[2017-04-18] MEDS ORDERED: Metoprolol XL (24 HR) Succ 25 MG TAB.ER.24H PO ONE (15:00)
--- NOTE | 2017-04-18 16:34 | Internal Med Progress Note ---
Date of Encounter: 04/18/17 Time of Encounter: 16:32 - Assessment and plan (1) Afib Current Visit: Yes Status: Acute Assessment and plan: per hx. presented with palpitations. Evaluated by Cardiology who noted recent device report, increased episodes of AT/Af. Home BB increased per Cardiology ( home LUKE to allow increase in BB). Patient reported cardiology planning another device interrogation on 04/18/17? Heart rate well controlled with increase in home BB. Continue current medication regimen. Await further recommendations from cardiology. Cont home Coumadin. Qualifiers: Atrial fibrillation type: persistent Qualified Code(s): I48.1 - Persistent atrial fibrillation (2) CAD (coronary artery disease) Current Visit: Yes Status: Chronic Assessment and plan: per hx. Denies CP. Continue home ASA, BB, statin Qualifiers: Coronary Disease-Associated Artery/Lesion type: bypass graft [place] vs. transplanted heart: [place] heart Associated angina: without angina Qualified Code(s): I25.810 - Atherosclerosis of coronary artery bypass graft(s) without angina pectoris (3) Chronic kidney disease, stage III (moderate) Current Visit: Yes Status: Chronic Assessment and plan: per hx. Renal function stable. Avoid nephrotoxic agents as possible. Intermittently monitor renal function (4) Diabetes mellitus Current Visit: Yes Status: Chronic Assessment and plan: per hx. Blood sugars uncontrolled. Holding home oral hypoglycemics. Cont home long-acting. SSI. Monitor blood sugar and titrate PRN Qualifiers: Diabetes mellitus type: type 2 Diabetes mellitus complication status: with kidney complications Diabetes mellitus complication detail: with chronic kidney disease Diabetes mellitus manager terminal insulin use: with [facility] use Chronic kidney disease stage: stage 3 (moderate) Qualified Code(s): E11.22 - Type 2 diabetes mellitus with diabetic chronic kidney disease; N18.3 - Chronic kidney disease, stage 3 (moderate); N18.3 - Chronic kidney disease, stage 3 ( moderate); Z79.4 - supervisor intermediates (current) use of insulin; Z79.4 - halfway ( current) use of insulin; Z79.4 - supervisor intermediates (current) use of insulin; Z79.4 - halfway (current) use of insulin (5) Essential hypertension Current Visit: Yes Status: Chronic Assessment and plan: per hx. BP elevated on arrival and now hypotensive with Cardizem drip. BP improved with IV fluid bolus. Cont BB at increased dose. Monitor BP (6) DVT prophylaxis Current Visit: Yes Status: Acute Assessment and plan: coumadin - Subjective Interval history: Seen and examined at bedside. Seen and examined bedside. He is sitting up in chair at bedside. Still with intermittent palpitations, says he feels like he still in A. fib. Says he is waiting on pacer interrogation. No chest pain or shortness of breath. - Constitutional Vitals: Temp Pulse Resp BP Pulse Ox 98.0 F 74 18 132/87 97 04/18/17 15:26 04/18/17 15:26 04/18/17 15:26 04/18/17 15:26 04/18/17 15:26 General appearance: Present: cooperative, A&O X 3, answers questions appropriately - Head Head exam: Present: atraumatic, normocephalic - Eye Eye exam: Present: PERRL, conjuntiva pink, sclera anicteric Pupils: Present: PERRL - Neck Neck exam general surgery: Present: supple, trachea midline. Absent: lymphadenopathy - Respiratory Respiratory exam: Present: CTAB. Absent: accessory muscle use, rales, rhonchi, wheezes - Cardiovascular Cardiovascular exam: Present: irregular rhythm, +S1, +S2. Absent: diastolic murmur, gallop, rubs, systolic murmur - GI/Abdominal GI/Abdominal exam: Present: normal bowel sounds, soft, no peritoneal signs. Absent: distended, tenderness - Extremities Exam Extremities exam: Present: warm, radial pulses palpable and symmetrical. Absent : calf tenderness, cyanotic, pedal edema - Neurological Exam Neurological exam: Present: CN II-XII intact, oriented X3, no focal deficits. Absent: pronater drift, facial droop, speech deficit - Skin Skin exam: Present: dry, intact Internal Medicine: Result - Labs CBC & Chem 7: 04/16/17 19:56 04/16/17 19:56 - ABG Interpretation ABG results: PT/INR, D-dimer PT 22.8 Seconds (9.4-12.1) H 04/18/17 05:26 Consult Discharge Plan - Plan Referrals: Nova Ames MD [Primary Care Provider] -
[2017-04-18] MEDS ORDERED: *HR* Warfarin 3 MG TABLET PO SCH (18:00)
[2017-04-19 05:26] LABS: Hematocrit 36.2 % (37.5-50.1); Mean Corpuscular HGB Conc 32.9 g/dL (31.6-35.5); Mean Corpuscular Volume 91.2 fL (83.0-100.0); Mean Platelet Volume 11.4 fL (9.4-12.4); Platelet Count 108 K/mcL (140-400); Red Blood Count 3.97 M/mcL (4.19-5.50); Red Cell Distribution Width 14.4 % (11.5-14.5)
[2017-04-19 05:29] LABS: Hemoglobin 11.9 g/dL (12.9-16.9)
[2017-04-19 05:31] LABS: BUN/Creatinine Ratio 12 (6-26); Blood Urea Nitrogen 17 mg/dL (8-23); Calcium 8.8 mg/dL (8.6-10.3); Carbon Dioxide 28 mEq/L (23-29); Chloride 106 mEq/L (98-107); Glucose 121 mg/dL (70-105); Osmolality,Calculated 291 (280-300); Potassium 3.6 mEq/L (3.5-5.1); Sodium 139 mEq/L (136-145); eGFR For African Americans > 60 (> 60); eGFR For Non-African Americans 50 (> 60)
[2017-04-19 05:32] LABS: INR 2.2; Prothrombin Time 24.5 Seconds (9.4-12.1)
[2017-04-19 05:45] LABS: Thyroid Stimulating Hormone 1.652 mcIU/mL (0.340-5.600)
[2017-04-19] MEDS: Insulin LISPRO 300 UNITS/3 ML VIAL SQ SCH ×2 (07:40→12:08)
[2017-04-19] MEDS: Insulin DETEMIR 100 UNIT/ML X5UNITS SQ SCH (08:15)
[2017-04-19] MEDS: Acetaminophen 325 MG TABLET PO PRN (08:15)
[2017-04-19] MEDS: Baclofen 10 MG TABLET PO SCH (08:17)
[2017-04-19] MEDS: Aspirin Enteric Coated 81 MG Tablet PO SCH (08:18)
[2017-04-19] MEDS ORDERED: Metoprolol XL (24 HR) Succ 50 MG TAB.ER.24H PO SCH (09:00)
[2017-04-19] MEDS ORDERED: Metoprolol XL (24 HR) Succ 25 MG TAB.ER.24H PO ONE (13:00)
--- NOTE | 2017-04-19 14:06 | Cardiology Progress Note ---
Date of Encounter: 04/19/17 Time of Encounter: 13:50 Assessment and Plan (1) Afib Current Visit: Yes Status: Acute Hx of PAF, has been on Coumadin for AC (INR monitored by PCP). Per device report, increased episodes of AT/AF--146 days with >6 hours AT/AF. Sotalol d/c'ed June 2015 due to worsening renal function, increased episodes of PAF. Presented with increase in palpitations over the past 2-3 weeks, also reports recent flu-like symptoms. 12 hour tele: avg HR=91 afib, paced rhythm. Reviewed device check with Dr. Humphries--episodes of tachycardia are sinus. Will increase Toprol XL for improved rate control. Will decrease ACEi to allow for uptitration of BB, CCB. INR goal 2-3. Pharmacy to dose coumadin as inpatient. No further testing recommended. Cardiology will sign-off. Qualifiers: Atrial fibrillation type: persistent Qualified Code(s): I48.1 - Persistent atrial fibrillation (2) Chronic kidney disease, stage III (moderate) Current Visit: Yes Status: Chronic SCr stable. (3) Essential hypertension Current Visit: Yes Status: Chronic Elevated upon admission. Now controlled. Continue to monitor and change medications accordingly. (4) CAD (coronary artery disease) Current Visit: Yes Status: Chronic Hx of CABG in 2006. [facility] 2012: s/p patent 3 of 3 bypass grafts--medical management recommended. Denies chest pain/discomfort. Continue home CV medications including asa, statin , betablocker. Qualifiers: Coronary Disease-Associated Artery/Lesion type: bypass graft [place] vs. transplanted heart: [place] heart Associated angina: without angina Qualified Code(s): I25.810 - Atherosclerosis of coronary artery bypass graft(s) without angina pectoris Discussion w patient/family: The assessment and plan as outlined above was discussed with the patient and/or family members who expressed understanding and agreement. All questions were answered. Thank you for involving us in the care of your patient. Please call with any questions. The patient was discussed and reviewed with Dr. Reggie Humphries; Cardiology will sign-off. Subjective Principal diagnosis: Afib with RVR Interval history: Seen and examined. No reported events overnight. Objective Vital Signs, Last 4 Hours Temp Pulse Resp BP Pulse Ox 04/19/17 11:19 97.8 F 97 15 111/73 97 General: Conversant, No Apparent Distress HEENT: Atraumatic, Normocephaly, Mucus Membranes Moist Cardiac: Reg Rate and Rhythm, Normal S1 and S2 Lungs: Normal Breath Sounds Neuro: Alert and responsive Abdomen: Soft Skin: No rashes noted on visualized skin Musculoskeletal: No Chest Wall Tenderness Extremities: No Edema, Normal Pulses Results 04/19/17 04:52 04/19/17 04:52 Lab Results 04/19/17 04/19/17 04/19/17 04:52 04:52 04:52 WBC 5.7 Hgb 11.9 L D Hct 36.2 L Plt Count 108 L INR 2.2 Sodium 139 Potassium 3.6 Chloride 106 Carbon Dioxide 28 BUN 17 Creatinine 1.40 H Glucose 121 H Calcium 8.8 TSH 1.652 - Imaging and Cardiology Echo: report reviewed Other Results: 12 hour tele: avg HR=91 paced. - EKG Interpretation EKG results cardiology: personally reviewed Consult Discharge Plan - Plan Referrals: Nova Ames MD [Primary Care Provider] -
--- NOTE | 2017-04-19 15:09 | Discharge Summary ---
Date of Encounter: 04/19/17 Time of Encounter: 15:09 - Discharge Diagnosis (1) Afib Priority: Primary Status: Acute Comments: per hx. presented with palpitations. Evaluated by Cardiology who noted recent device report showed increased episodes of AT/Af. Home BB increased per Cardiology (home LUKE to allow increase in BB). Cont home Couamdin. Follow-up [facility] Cardiology outpatient Qualifiers: Atrial fibrillation type: persistent Qualified Code(s): I48.1 - Persistent atrial fibrillation (2) CAD (coronary artery disease) Priority: Primary Status: Chronic Comments: per hx. Asymptomatic. Denied CP. Continue home ASA, BB, statin Qualifiers: Coronary Disease-Associated Artery/Lesion type: bypass graft [place] vs. transplanted heart: [place] heart Associated angina: without angina Qualified Code(s): I25.810 - Atherosclerosis of coronary artery bypass graft(s) without angina pectoris (3) Chronic kidney disease, stage III (moderate) Priority: Secondary Status: Chronic Comments: per hx. Renal function stable. Avoid nephrotoxic agents as possible. (4) Diabetes mellitus Priority: Secondary Status: Chronic Comments: per hx. Cont home oral hypoglycemics. Qualifiers: Diabetes mellitus type: type 2 Diabetes mellitus ferry terminal agent insulin use: with correction use Diabetes mellitus complication status: with kidney complications Diabetes mellitus complication detail: with chronic kidney disease Chronic kidney disease stage: stage 3 (moderate) Qualified Code(s): E11.22 - Type 2 diabetes mellitus with diabetic chronic kidney disease; N18.3 - Chronic kidney disease, stage 3 (moderate); N18.3 - Chronic kidney disease, stage 3 (moderate); Z79.4 - vermin exterminator (current) use of insulin; Z79.4 - assisted (current) use of insulin; Z79.4 - vermin exterminator (current) use of insulin; Z79.4 - assisted (current) use of insulin (5) Essential hypertension Priority: Secondary Status: Chronic Comments: per hx. BP controlled. Cont home BB, LUKE Hospital course: Mr. Vigil is a 71 year old male H HTN, CAD and atrial fibrillation who presented to [facility] on 04/17/2017 with complaints of palpitations. He was found to be in A. fib with RVR. He was initially managed with a Cardizem drip which was eventually weaned off. His medications were adjusted and home BB increased with adequate heart rate control. He was discharged home in stable condition with outpatient follow-up. Please see assessment and plan for further details Discharge discussed with: patient - Time Spent with Patient Total time spent providing and/or coordinating discharge services: Less than 30 minutes - Discharge Medications Prescriptions: Lisinopril [Zestril] 2.5 mg PO DAILY #30 tablet Metoprolol Succinate 100 mg PO DAILY #60 tab.er.24h Home Medications: Albuterol Sulfate [Albuterol Inhaler] 2 puff IH Q4H PRN 04/16/17 [History] Allopurinol [Zyloprim 300 MG] 300 mg PO DAILY 04/16/17 [History] Aspirin Enteric Coated [Aspirin EC] 81 mg PO DAILY 04/16/17 [History] Baclofen 20 mg PO BID 04/16/17 [History] GlipiZIDE [Glipizide ER] 10 mg PO DAILY 04/16/17 [History] Insulin DETEMIR [Levemir Flextouch] 30 unit SQ BID 04/16/17 [History] PARoxetine HCl [Paroxetine HCl] 40 mg PO DAILY 04/16/17 [History] Pantoprazole Sodium 40 mg PO DAILY 04/16/17 [History] Rosuvastatin Calcium 40 mg PO HS 04/16/17 [History] Terazosin HCl 10 mg PO HS 04/16/17 [History] Warfarin [Coumadin] 3 mg PO 1800 04/16/17 [History] Lisinopril [Zestril] 2.5 mg PO DAILY #30 tablet 04/19/17 [Rx] Metoprolol Succinate 100 mg PO DAILY #60 tab.er.24h 04/19/17 [Rx] Allergies/Adverse Reactions: 3 Allergy/AdvReac Type Severity Reaction Status Date / Time Penicillins Allergy Hives Verified 04/16/17 22:12 Date of admission: 04/18/17 17:16 Primary care physician: Nova Ames Discharging clinician: Anay Wade Anticipated date of discharge: 04/19/17 - Constitutional Vitals: Temp Pulse Resp BP Pulse Ox 97.8 F 97 15 111/73 97 04/19/17 11:19 04/19/17 11:19 04/19/17 11:19 04/19/17 11:19 04/19/17 11:19 General appearance: Present: cooperative, A&O X 3, answers questions appropriately - Head Head exam: Present: atraumatic, normocephalic - Eye Eye exam: Present: PERRL, conjuntiva pink, sclera anicteric Pupils: Present: PERRL - Neck Neck exam general surgery: Present: supple, trachea midline. Absent: lymphadenopathy - Respiratory Respiratory exam: Present: CTAB. Absent: accessory muscle use, rales, rhonchi, wheezes - Cardiovascular Cardiovascular exam: Present: RRR, +S1, +S2. Absent: diastolic murmur, gallop, rubs, systolic murmur - GI/Abdominal GI/Abdominal exam: Present: normal bowel sounds, soft, no peritoneal signs. Absent: distended, tenderness - Extremities Exam Extremities exam: Present: warm, radial pulses palpable and symmetrical. Absent : calf tenderness, cyanotic, pedal edema - Neurological Exam Neurological exam: Present: CN II-XII intact, oriented X3, no focal deficits. Absent: pronater drift, facial droop, speech deficit - Skin Skin exam: Present: dry, intact - Patient Status Disposition: Home, Self-Care Condition: Good Functional capacity at discharge: uses cane/walker Overall status at discharge: patient is back to baseline - Discharge Instructions Instructions: Atrial Fibrillation (DC) Follow Up With: Nova Ames MD [Primary Care Provider] - (Please call within 1-2 weeks for follow-up ) Luis M Berman DO [Partnered Physician] - (Please call for follow-up appt within 1-2 weeks ) - Diet and Activity Diet: advance to your usual diet
[2017-04-19 15:17] VITALS: BP 155/76
--- NOTE | 2017-04-19 16:01 | Physician Discharge Referral ---
Home Health/Hosp Referral Info Transfer to: Home Health Attending Provider: Anay Wade CNP Provider in Charge Post Discharge: PCP - Diagnosis (1) Afib Status: Acute (2) CAD (coronary artery disease) Status: Chronic (3) Chronic kidney disease, stage III (moderate) Status: Chronic (4) Diabetes mellitus Status: Chronic (5) Essential hypertension Status: Chronic - Respiratory Orders None Smoking Cessation: Smoking cessation has been advised. For more information, call the [place] Tobacco Quit Line at 7-239-TAHW-NOW. - Diet/Nutrition Diet/Nutrition Orders: No Concentrated Sweets - Activity Activity Orders: Ambulate, Walker - Services Needed Following services are medically necessary services: Nursing, Home Health Aide - Transfer Medications Prescriptions: Lisinopril [Zestril] 2.5 mg PO DAILY #30 tablet Metoprolol Succinate 100 mg PO DAILY #60 tab.er.24h Home Medications: Albuterol Sulfate [Albuterol Inhaler] 2 puff IH Q4H PRN 04/16/17 [History] Allopurinol [Zyloprim 300 MG] 300 mg PO DAILY 04/16/17 [History] Aspirin Enteric Coated [Aspirin EC] 81 mg PO DAILY 04/16/17 [History] Baclofen 20 mg PO BID 04/16/17 [History] GlipiZIDE [Glipizide ER] 10 mg PO DAILY 04/16/17 [History] Insulin DETEMIR [Levemir Flextouch] 30 unit SQ BID 04/16/17 [History] PARoxetine HCl [Paroxetine HCl] 40 mg PO DAILY 04/16/17 [History] Pantoprazole Sodium 40 mg PO DAILY 04/16/17 [History] Rosuvastatin Calcium 40 mg PO HS 04/16/17 [History] Terazosin HCl 10 mg PO HS 04/16/17 [History] Warfarin [Coumadin] 3 mg PO 1800 04/16/17 [History] Lisinopril [Zestril] 2.5 mg PO DAILY #30 tablet 04/19/17 [Rx] Metoprolol Succinate 100 mg PO DAILY #60 tab.er.24h 04/19/17 [Rx] Allergies/Adverse Reactions: 3 Allergy/AdvReac Type Severity Reaction Status Date / Time Penicillins Allergy Hives Verified 04/16/17 22:12 Certification: Further, I certify that my clinical findings support that this patient is homebound (i.e. absences from home require considerable and taxing effort and are for medical reasons or temple services or infrequently or short duration when for other reasons) because: Homebound Reason: Patient requires assistance of a person or device to safely leave home Attestation: My signature below is to certify that this patient is under my care and that I, or nurse practitioner, or a physician's human resources executive assistant working with me, has a face-to -face encounter with this patient.
[2017-04-20] MEDS ORDERED: Metoprolol XL (24 HR) Succ 50 MG TAB.ER.24H PO SCH (09:00)
== END 2017-04-19 16:45 | disposition home or self-care (01) | DRG 309 ==
LOC: EMEROO 18:56 → 3BNU 18:56
PROVIDERS: ADMIT Registered Nurse; ATTEND Registered Nurse

== ENCOUNTER 2017-04-21 20:38 | Observation (INO) ==
[2017-04-21] MEDS ORDERED: Aspirin 81 MG TAB.CHEW PO ONE (21:04)
[2017-04-21 21:28] LABS: Basophils # 0.1 K/mcL (0.0-0.2); Basophils % 0.8 %; Eosinophils # 0.4 K/mcL (0.0-0.6); Eosinophils % 5.9 %; Hematocrit 39.7 % (37.5-50.1); Hemoglobin 13.4 g/dL (12.9-16.9); Immature Granulocytes % 0.5 % (0-4); Lymphocytes # 2.4 K/mcL (0.6-4.6); Lymphocytes % 36.5 %; Mean Corpuscular HGB Conc 33.8 g/dL (31.6-35.5); Mean Corpuscular Hemoglobin 30.2 pg (28.0-33.3); Mean Corpuscular Volume 89.4 fL (83.0-100.0); Mean Platelet Volume 11.7 fL (9.4-12.4); Monocytes # 0.4 K/mcL (0.0-1.3); Monocytes % 6.2 %; Neutrophils # 3.3 K/mcL (1.6-8.9); Platelet Count 128 K/mcL (140-400); Red Blood Count 4.44 M/mcL (4.19-5.50); Red Cell Distribution Width 14.2 % (11.5-14.5); Segmented Neutrophils % 50.1 %
--- NOTE | 2017-04-21 21:28 | Emergency Department Note ---
START Narrative - START START: I examined this patient and my medical decision-making was reviewed with the Resident Physician. I agree with the documented findings, disposition and treatment plan as described except to the extent set forth below. 71 year ol jayden presents to the ED with complants of chest pain. He was most recently admitted to the hospital for atrial fib rvr and had an echo with cards consult. Jeremi robertson returning to the ED wiht increased chest pain that is midsternal without diaphoresis, exertiona dypsnea, or productive cough, or hemoptysis. We will do cardiopulmonary workup and rule out HCAP and PE.
--- NOTE | 2017-04-21 21:43 | Emergency Department Note ---
Disposition Clinical Impression: Chest pain Qualifiers: Chest pain type: unspecified Qualified Code(s): R07.9 - Chest pain, unspecified Disposition: Admitted As Inpatient Condition: Good Time of Disposition: 22:34 General Adult HPI - General Chief complaint: ED Chest Pain Stated complaint: chest pain Time Seen by Provider: 04/21/17 20:53 Source: patient Limitations: no limitations Nursing Notes Reviewed: Yes Vital Signs Reviewed: Yes - History of Present Illness HPI Narrative: 71-year-old male with significant past medical history of chronic kidney disease , A. fib and CABG in 2005 currently on Coumadin presenting to the emergency Department chief complaint of chest pain. Patient was recently hospitalized and discharged a few days ago. When he was admitted they completed an echo but no further invasive cardiac testing. Patient states he started having left sided chest pain today. He became nauseous and diaphoretic. He did not vomit. Patient is having no chest pain at this time. Patient denies any shortness of breath, dizziness or fevers. Pain Scale: 6 - Related Data Home Medications Medication Instructions Recorded Confirmed Albuterol Sulfate [Albuterol 2 puff IH Q4H PRN 04/16/17 04/16/17 Inhaler] Allopurinol [Zyloprim 300 MG] 300 mg PO DAILY 04/16/17 04/16/17 Aspirin Enteric Coated [Aspirin EC] 81 mg PO DAILY 04/16/17 04/16/17 Baclofen 20 mg PO BID 04/16/17 04/16/17 GlipiZIDE [Glipizide ER] 10 mg PO DAILY 04/16/17 04/16/17 Insulin DETEMIR [Levemir Flextouch] 30 unit SQ BID 04/16/17 04/16/17 PARoxetine HCl [Paroxetine HCl] 40 mg PO DAILY 04/16/17 04/16/17 Pantoprazole Sodium 40 mg PO DAILY 04/16/17 04/16/17 Rosuvastatin Calcium 40 mg PO HS 04/16/17 04/16/17 Terazosin HCl 10 mg PO HS 04/16/17 04/16/17 Warfarin [Coumadin] 3 mg PO 1800 04/16/17 04/16/17 Previous Rx's Medication Instructions Recorded Lisinopril [Zestril] 2.5 mg PO DAILY #30 tablet 04/19/17 Metoprolol Succinate 100 mg PO DAILY #60 tab.er.24h 04/19/17 Allergies Allergy/AdvReac Type Severity Reaction Status Date / Time Penicillins Allergy Hives Verified 04/16/17 22:12 All systems ED: reviewed and negative except as stated. Cardiovascular: Reports: chest pain Gastrointestinal: Reports: nausea Past Medical History - Past Medical History Attestation: Yes The following information was validated with the patient. Medical history: Reports: atrial fibrillation, cardiomyopathy, coronary artery disease, CVA, GERD, hyperlipidemia, hypertension, TIA Psychiatric history: Reports: depression - Social History Smoking Status: Never smoker Smokeless Tobacco Status: No Alcohol use: Reports: none Drug use: Reports: none Physical Exam - General Limitations: no limitations General appearance: alert, in no apparent distress - Head Head exam: atraumatic, normocephalic, normal inspection - Eye Eye exam: Present: normal appearance. Absent: scleral icterus, conjunctival injection - ENT ENT exam: normal exam, mucous membranes moist - Neck Neck exam: Present: normal inspection, full ROM. Absent: tenderness, meningismus - Chest Chest inspection: Present: normal inspection, symmetric chest wall rise. Absent : tenderness, rash - Respiratory Respiratory exam: Present: normal lung sounds bilaterally. Absent: respiratory distress, wheezes - Cardiovascular Cardiovascular exam: Present: regular rate, normal rhythm, normal heart sounds - Abdominal Exam Abdominal exam: Present: soft, Non-Tender. Absent: distention, guarding, rebound - Extremities Exam Extremities exam: Present: normal inspection, full ROM - Neurological Exam Neurological exam: Present: alert, oriented X3 - Psychiatric Psychiatric exam: Present: normal affect, normal mood - Skin Skin exam: Present: warm, intact Course Course Narrative: 71-year-old male presenting to the emergency department for chest pain. Patient is pain-free at this time. Physical exam benign. He is alert and oriented 3 in the room with stable vital signs. We will perform chest pain workup including CBC, BMP, troponin, EKG and chest x-ray. Disposition most likely admission due to patient's heart score but pending results. Patient agrees this plan. - Reevaluation(s) Reevaluation #1: Patient's laboratory analysis mostly unchanged from previous. Troponin negative. Plan to admit the patient at this time for chest pain workup. I spoke with the hospitalist on-call Dr. Salas who agrees to accept the patient at this time. Vital Signs Temperature 97.8 F 04/21/17 20:47 Pulse Rate 80 04/21/17 20:47 Respiratory Rate 22 04/21/17 20:47 Blood Pressure 168/117 04/21/17 20:47 O2 Sat by Pulse Oximetry 96 04/21/17 20:47 Temperature 97.8 F 04/21/17 20:47 Pulse Rate 69 04/21/17 22:11 Respiratory Rate 18 04/21/17 22:11 Blood Pressure 167/100 04/21/17 22:11 O2 Sat by Pulse Oximetry 98 04/21/17 22:11 Oxygen Delivery Oxygen Delivery Room Air Medical Decision Making - Lab Data Result diagrams: 04/21/17 21:00 04/21/17 21:00 Lab Results 04/21/17 04/21/17 04/21/17 Range/Units 21:00 21:00 21:09 WBC 6.6 (4.3-11.1) K/mcL RBC 4.44 (4.19-5.50) M/mcL Hgb 13.4 D (12.9-16.9) g/dL Hct 39.7 (37.5-50.1) % MCV 89.4 (83.0-100.0) fL MCH 30.2 (28.0-33.3) pg MCHC 33.8 (31.6-35.5) g/dL RDW 14.2 (11.5-14.5) % Plt Count 128 L (140-400) K/mcL MPV 11.7 (9.4-12.4) fL Immature Gran % 0.5 (0-4) % Seg Neutrophils % 50.1 % Lymphocytes % 36.5 % Monocytes % 6.2 % Eosinophils % 5.9 % Basophils % 0.8 % Neutrophils # 3.3 (1.6-8.9) K/mcL Lymphocytes # 2.4 (0.6-4.6) K/mcL Monocytes # 0.4 (0.0-1.3) K/mcL Eosinophils # 0.4 (0.0-0.6) K/mcL Basophils # 0.1 (0.0-0.2) K/mcL PT 27.5 H (9.4-12.1) Seconds INR 2.5 D-Dimer 531 H (0-500) ng/mLFEU Sodium 134 L (136-145) mEq/L Potassium 3.4 L (3.5-5.1) mEq/L Chloride 99 (98-107) mEq/L Carbon Dioxide 26 (23-29) mEq/L BUN 22 (8-23) mg/dL Creatinine 1.42 H (0.70-1.30) mg/dL Est GFR ( Amer) 59 L (> 60) Est GFR (Non-Af Amer) 49 L (> 60) BUN/Creatinine Ratio 15 (6-26) Glucose 157 H (70-105) mg/dL Calculated Osmolality 285 (280-300) Calcium 9.7 (8.6-10.3) mg/dL Troponin I 0.03 (< 0.04) ng/mL - EKG Data EKG #1 EKG attestation: Yes I reviewed and interpreted this EKG. EKG results narrative: Electronically paced. [address] interval 131, QRS 180, QTC 490. Does not meet S[place] criteria. Compared to previous EKG completed on 04/16/2017 no significant changes noted
[2017-04-21 21:51] LABS: Calcium 9.7 mg/dL (8.6-10.3); Potassium 3.4 mEq/L (3.5-5.1)
[2017-04-21 21:52] LABS: Troponin I 0.03 ng/mL (< 0.04)
[2017-04-21] MEDS ORDERED: *HR* Metoprolol 5 MG/5 ML VIAL IVP ONE (22:16)
[2017-04-21 22:20] LABS: INR 2.5; Prothrombin Time 27.5 Seconds (9.4-12.1)
[2017-04-22] MEDS ORDERED: Naloxone 0.4 MG/ML INJ IVP PRN (00:15)
[2017-04-22] MEDS ORDERED: *HR* HYDROcodone/Acet 5/325 mg TABLET PO PRN (00:15)
[2017-04-22] MEDS ORDERED: Acetaminophen 325 MG TABLET PO PRN (00:15)
--- NOTE | 2017-04-22 00:24 | Internal Med History&Physical ---
Date of Encounter: 04/22/17 Time of Encounter: 00:10 Assessment and Plan (1) Chest pain Current visit: Yes Status: Acute Patient presenting with chest pain likely related to accelerated hypertension. Will place him under observation with telemetry due to his risk factors for ACS. Trend troponins. Plan for cardiac stress test if troponins are negative. We will also get 2-D echocardiogram. Qualifiers: Chest pain type: precordial pain Qualified Code(s): R07.2 - Precordial pain (2) Chronic kidney disease, stage III (moderate) Current visit: Yes Status: Chronic Renal function at baseline. (3) Diabetes mellitus Current visit: Yes Status: Chronic Monitor blood sugars. Sliding scale insulin and Levemir. Diabetic diet when patient is able to eat. Qualifiers: Diabetes mellitus type: type 2 Diabetes mellitus custodial insulin use: with pastry decorator use Diabetes mellitus complication status: with kidney complications Diabetes mellitus complication detail: with chronic kidney disease Chronic kidney disease stage: stage 3 (moderate) Qualified Code(s): E11.22 - Type 2 diabetes mellitus with diabetic chronic kidney disease; N18.3 - Chronic kidney disease, stage 3 (moderate); N18.3 - Chronic kidney disease, stage 3 (moderate); Z79.4 - senior care (current) use of insulin; Z79.4 - continuous improvement manager (current) use of insulin; Z79.4 - senior care (current) use of insulin; Z79.4 - continuous improvement manager (current) use of insulin (4) Essential hypertension Current visit: Yes Status: Chronic Accelerated hypertension on arrival. Improving. Continue home medications. As patient was not able to afford Toprol-XL, will place him on Lopressor 50 mg twice daily. (5) Afib Current visit: Yes Status: Chronic Rate controlled. On anticoagulation with Coumadin. Qualifiers: Atrial fibrillation type: persistent Qualified Code(s): I48.1 - Persistent atrial fibrillation Internal Medicine - H&P: HPI Chief complaint: Chest pain, headache Admitted From: Emergency Dept Plans for Post Hospital Care: Home History of present illness: Mr. Vigil is a 71 year old male patient with a history of essential hypertension, atrial fibrillation, diabetes, permanent pacemaker who presented to the ER with complaints of chest pain that began yesterday evening. Patient has been noticing his blood pressure going high and began to develop headache and chest pain associated with it. He was recently hospitalized here last week for tachycardia and at that time his metoprolol dosage was increased. However he has not been able to afford this medication as he normally place for medications out of pocket. He has therefore not been taking his higher prescribed dose. Nevertheless he took his previous medications and his chest pain improved by the time he came to the ER. He now feels much better. He did have palpitations before but this is also subsided. Patient is on anticoagulation with Coumadin. Past Med Surg Social Fam HX - Past Medical History Attestation: Yes The following information was validated with the patient. Source: patient Medical history: atrial fibrillation, cardiomyopathy, coronary artery disease, CVA, GERD, hyperlipidemia, hypertension, TIA Psychiatric history: depression - Social History Smoking Status: Never smoker Smokeless Tobacco Status: No Alcohol use: none Drug use: none - Family History Father Hx Family Cardiac Disorders: Yes (Pacemaker) Mother Adopted: No Hx Family Cardiac Disorders: Yes ("Arteries clogged") Hx Family Endocrine Disorder: Yes (Diabetic) Internal Medicine - H&P: Meds Albuterol Sulfate [Albuterol Inhaler] 2 puff IH Q4H PRN 04/16/17 [History] Allopurinol [Zyloprim 300 MG] 300 mg PO DAILY 04/16/17 [History] Aspirin Enteric Coated [Aspirin EC] 81 mg PO DAILY 04/16/17 [History] Baclofen 20 mg PO BID 04/16/17 [History] GlipiZIDE [Glipizide ER] 10 mg PO DAILY 04/16/17 [History] Insulin DETEMIR [Levemir Flextouch] 30 unit SQ BID 04/16/17 [History] PARoxetine HCl [Paroxetine HCl] 40 mg PO DAILY 04/16/17 [History] Pantoprazole Sodium 40 mg PO DAILY 04/16/17 [History] Rosuvastatin Calcium 40 mg PO HS 04/16/17 [History] Terazosin HCl 10 mg PO HS 04/16/17 [History] Warfarin [Coumadin] 3 mg PO 1800 04/16/17 [History] Lisinopril [Zestril] 2.5 mg PO DAILY #30 tablet 04/19/17 [Rx] Metoprolol Succinate 100 mg PO DAILY #60 tab.er.24h 04/19/17 [Rx] 3 Allergy/AdvReac Type Severity Reaction Status Date / Time Penicillins Allergy Hives Verified 04/16/17 22:12 All Systems PM: A 10-system review of systems was performed and is negative for pertinent findings except as documented above in the HPI. - Constitutional Constitutional: no chills, no fever(s), no night sweats - EENT Eyes: no change in vision, no discharge, no pain, no photophobia Ears: no ear discharge, no ear pain, no tinnitus Nose, mouth and throat: no dysphagia, no nasal discharge, no neck pain, no sore throat - Cardiovascular Cardiovascular ROS IM: chest pain, palpitations, no diaphoresis, no dyspnea, no lightheadedness, no syncope - Respiratory Respiratory: no cough, no dyspnea, no wheezing, no excessive phlegm production - Musculoskeletal Musculoskeletal ROS IM: no numbness, no tingling - Integumentary Integumentary IM: no rash, no unusual bruising - Neurological Neurological ROS: no confusion, no convulsions, no focal weakness, no numbness, no tingling, no tremor(s) - Hematologic/Lymphatic Hematologic/Lymphatic: no easy bruising - Constitutional Vitals: Temp Pulse Resp BP Pulse Ox 97.9 F 71 17 159/85 96 04/21/17 23:28 04/21/17 23:28 04/21/17 23:28 04/21/17 23:28 04/21/17 23:28 General appearance: Present: cooperative, A&O X 3, obese, answers questions appropriately - Neck Neck exam general surgery: Present: supple, trachea midline. Absent: lymphadenopathy - Respiratory Respiratory exam: Present: CTAB. Absent: accessory muscle use, rales, rhonchi, wheezes - Cardiovascular Cardiovascular exam: Present: RRR, +S1, +S2. Absent: diastolic murmur, gallop, rubs, systolic murmur - GI/Abdominal GI/Abdominal exam: Present: normal bowel sounds, soft, no peritoneal signs. Absent: distended, tenderness - Extremities Exam Extremities exam: Present: warm, radial pulses palpable and symmetrical. Absent : calf tenderness, cyanotic, pedal edema - Neurological Exam Neurological exam: Present: CN II-XII intact, oriented X3, no focal deficits. Absent: facial droop, speech deficit - Skin Skin exam: Present: dry, intact Internal Med - H&P Results - Labs CBC & Chem 7: 04/21/17 21:00 04/21/17 21:00 - EKG Data -: EKG Interpreted by Myself - EKG Data EKG comments: 04/22/17 00:25 Paced rhythm - Impressions Impressions Chest X-Ray 04/21/17 21:04 IMPRESSION: Linear bibasilar opacity, favored to represent atelectasis. Otherwise, negative portable chest. D/ / Jun Phipps MD / Jun Phipps MD Interpreting Provider: Jun Phipps MD
[2017-04-22] MEDS ORDERED: Dextrose Gel 15 GM/37.5 ML TUBE PO PRN ×2 (00:28)
[2017-04-22] MEDS ORDERED: D5% in Water 1,000 ML IVC PRN (00:28)
[2017-04-22] MEDS ORDERED: *HR* Dextrose 50 % in Water (Syg) 50 ML SYRINGE IVP PRN (00:28)
[2017-04-22 05:31] LABS: BUN/Creatinine Ratio 15 (6-26); Blood Urea Nitrogen 21 mg/dL (8-23); Carbon Dioxide 27 mEq/L (23-29); Chloride 102 mEq/L (98-107); Glucose 151 mg/dL (70-105); Osmolality,Calculated 288 (280-300); Potassium 3.5 mEq/L (3.5-5.1); Sodium 136 mEq/L (136-145); eGFR For African Americans > 60 (> 60); eGFR For Non-African Americans 51 (> 60)
[2017-04-22] MEDS: Insulin LISPRO 300 UNITS/3 ML VIAL SQ SCH ×3 (06:01→18:06)
[2017-04-22] MEDS ORDERED: Regadenoson 0.4 MG/5 ML SYRINGE IVP ONE (06:23)
[2017-04-22] MEDS: Baclofen 10 MG TABLET PO SCH ×2 (11:02→21:20)
[2017-04-22] MEDS: Aspirin Enteric Coated 81 MG Tablet PO SCH (11:02)
[2017-04-22] MEDS: Insulin DETEMIR 100 UNIT/ML X5UNITS SQ SCH ×2 (11:09→22:42)
--- NOTE | 2017-04-22 12:23 | Event Note ---
Date of Encounter: 04/22/17 Time of Encounter: 12:19 71-year-old male gentleman admitted with chest pain. Step 1 of a 2 part stress test has been completely completed. Step to be completed in the morning. He will be nothing by mouth after midnight. Echocardiogram is pending. He has a history of a pacemaker , chronic kidney disease stage III, diabetes mellitus type 2, essential hypertension, atrial fib on anticoagulation with Coumadin therapy. His INR is 2.5.
[2017-04-22] MEDS ORDERED: *HR* Metoprolol 5 MG/5 ML VIAL IVP ONE (16:42)
[2017-04-22] MEDS ORDERED: Warfarin perPT PO PRN (18:00)
[2017-04-22] MEDS ORDERED: *HR* Warfarin 3 MG TABLET PO SCH ×2 (18:00→20:15)
--- NOTE | 2017-04-22 20:17 | Electrocardiograph Report ---
[place] [id number] Test Date: 2017-04-21 Pat Name: Andrew Vigil Department: 104 Room: 3B48 Gender: M Photographer Still: LISA : 1945 Requested By: Angela Holloway Order Number: [id number] Reading MD: Yousif Baxter MD Measurements Intervals [place] Rate: 85 P: 69 NV: 141 QRS: 240 QRSD: 180 T: 75 QT: 447 QTc: 490 Interpretive Statements ELECTRONIC ATRIAL PACEMAKER ELECTRONIC VENTRICULAR PACEMAKER Electronically Signed On 04-22-2017 20:16:17 EDT by Yousif Baxter MD
[2017-04-22] MEDS ORDERED: Simethicone 80 MG TAB.CHEW PO PRN (22:55)
[2017-04-23] MEDS: Insulin LISPRO 300 UNITS/3 ML VIAL SQ SCH ×3 (00:17→13:06)
[2017-04-23 04:57] LABS: Hematocrit 37.8 % (37.5-50.1); Hemoglobin 12.4 g/dL (12.9-16.9); Mean Corpuscular HGB Conc 32.8 g/dL (31.6-35.5); Mean Corpuscular Hemoglobin 29.9 pg (28.0-33.3); Mean Corpuscular Volume 91.1 fL (83.0-100.0); Mean Platelet Volume 11.7 fL (9.4-12.4); Platelet Count 117 K/mcL (140-400); Red Blood Count 4.15 M/mcL (4.19-5.50); Red Cell Distribution Width 14.6 % (11.5-14.5)
[2017-04-23 05:18] LABS: Calcium 9.1 mg/dL (8.6-10.3); Potassium 3.6 mEq/L (3.5-5.1)
[2017-04-23 12:08] VITALS: BP 132/90
[2017-04-23] MEDS: Aspirin Enteric Coated 81 MG Tablet PO SCH (12:43)
[2017-04-23] MEDS: Insulin DETEMIR 100 UNIT/ML X5UNITS SQ SCH (12:44)
[2017-04-23] MEDS: Baclofen 10 MG TABLET PO SCH (12:44)
--- NOTE | 2017-04-23 13:30 | Discharge Summary ---
Orders not resulted at time of discharge: Pending orders 04/22/17 00:21 NM dee perf SPECT multi [NM] Routine 04/24/17 04:00 INR/PT [Prothrombin Time INR] [COAG] AM 0400 Date of Encounter: 04/23/17 Time of Encounter: 13:24 - Discharge Diagnosis (1) Chest pain Priority: Primary Status: Acute Comments: 1 continue with aspirin and statin lisinopril and beta sarah Nitroglycerin as needed for chest pain Patient is to follow-up with primary care and cardiology Qualifiers: Chest pain type: precordial pain Qualified Code(s): R07.2 - Precordial pain (2) Afib Priority: Secondary Status: Chronic Comments: Theron rate controlled continue with beta sarah as well as Coumadin patient is to follow-up with Coumadin clinic Qualifiers: Atrial fibrillation type: persistent Qualified Code(s): I48.1 - Persistent atrial fibrillation (3) Chronic kidney disease, stage III (moderate) Priority: Secondary Status: Chronic Comments: Patient appears to be around baseline (4) Diabetes mellitus Priority: Secondary Status: Chronic Comments: Continue with home medication and insulin Qualifiers: Diabetes mellitus type: type 2 Diabetes mellitus skilled nursing insulin use: with termite exterminator helper use Diabetes mellitus complication status: with kidney complications Diabetes mellitus complication detail: with chronic kidney disease Chronic kidney disease stage: stage 3 (moderate) Qualified Code(s): E11.22 - Type 2 diabetes mellitus with diabetic chronic kidney disease; N18.3 - Chronic kidney disease, stage 3 (moderate); N18.3 - Chronic kidney disease, stage 3 (moderate); Z79.4 - retirement (current) use of insulin; Z79.4 - intermediate accountant (current) use of insulin; Z79.4 - intermediate accountant (current) use of insulin; Z79.4 - intermediate accountant (current) use of insulin (5) Essential hypertension Priority: Secondary Status: Chronic Comments: Much improved continue with Lopressor 50 mg twice a day as well as lisinopril Hospital course: Mr. Vigil is a 71 year old male past medical history of hypertension H of fibrillation on Coumadin diabetes permanent pacemaker. He presented to [facility] ED with complaints of chest pain as well as elevation and blood pressure with associated symptoms of headache and chest pain. He was recently hospitalized at this facility last week for tachycardia. At that time his metoprolol dosage was increased however he has not been able to afford this medication he normally pays out of pocket and was not taking his high her prescribed dosage. However he did take his previous medication and his chest pain did improve bedtime he came to the ER. He was kept overnight for observation and was placed on Lopressor 50 mg twice a day which did improve his blood pressure. Cardiac enzymes were negative x3 EKG with no ST-T wave abnormalities he underwent cardiac nuclear stress test which was negative for ischemia or infarct. Patient has not had any chest pain during this admission. I reviewed medications with patient and advised patient to follow-up with PCP and ob/gyn since these providers know him best and can adjust medication accordingly. He is hemodynamically stable at this time and he is ready for discharge. Discharge discussed with: patient Time spent discussing smoking cessation with patient: 3 to 10 minutes - Time Spent with Patient Total time spent providing and/or coordinating discharge services: - Discharge Medications Prescriptions: Metoprolol [Lopressor] 50 mg PO BID #60 tablet Home Medications: Albuterol Sulfate [Albuterol Inhaler] 2 puff IH Q4H PRN 04/16/17 [History] Allopurinol [Zyloprim 300 MG] 300 mg PO DAILY 04/16/17 [History] Aspirin Enteric Coated [Aspirin EC] 81 mg PO DAILY 04/16/17 [History] Baclofen 20 mg PO BID 04/16/17 [History] GlipiZIDE [Glipizide ER] 10 mg PO DAILY 04/16/17 [History] Insulin DETEMIR [Levemir Flextouch] 30 unit SQ BID 04/16/17 [History] PARoxetine HCl [Paroxetine HCl] 40 mg PO DAILY 04/16/17 [History] Pantoprazole Sodium 40 mg PO DAILY 04/16/17 [History] Rosuvastatin Calcium 40 mg PO HS 04/16/17 [History] Terazosin HCl 10 mg PO HS 04/16/17 [History] Warfarin [Coumadin] 3 mg PO 1800 04/16/17 [History] Lisinopril [Zestril] 10 mg PO DAILY 04/22/17 [History] Metoprolol [Lopressor] 50 mg PO BID #60 tablet 04/23/17 [Rx] Allergies/Adverse Reactions: 3 Allergy/AdvReac Type Severity Reaction Status Date / Time Penicillins Allergy Hives Verified 04/22/17 13:06 Date of admission: 04/21/17 22:27 Primary care physician: Nova Ames Discharging clinician: Viktoriya Ulloa Anticipated date of discharge: 04/23/17 - Constitutional Vitals: Temp Pulse Resp BP Pulse Ox 98.0 F 95 16 132/90 95 04/23/17 12:05 04/23/17 12:05 04/23/17 12:05 04/23/17 12:05 04/23/17 12:05 General appearance: Present: cooperative, A&O X 3, obese, answers questions appropriately - Head Head exam: Present: atraumatic, normocephalic - Eye Eye exam: Present: PERRL, conjuntiva pink, sclera anicteric Pupils: Present: PERRL - Neck Neck exam general surgery: Present: supple, trachea midline. Absent: lymphadenopathy - Respiratory Respiratory exam: Present: CTAB. Absent: accessory muscle use, rales, rhonchi, wheezes - Cardiovascular Cardiovascular exam: Present: RRR, +S1, +S2. Absent: diastolic murmur, gallop, rubs, systolic murmur - GI/Abdominal GI/Abdominal exam: Present: normal bowel sounds, soft, no peritoneal signs. Absent: distended, tenderness - Extremities Exam Extremities exam: Present: warm, radial pulses palpable and symmetrical. Absent : calf tenderness, cyanotic, pedal edema - Neurological Exam Neurological exam: Present: CN II-XII intact, oriented X3, no focal deficits. Absent: pronater drift, facial droop, speech deficit - Skin Skin exam: Present: dry, intact - Patient Status Disposition: Home, Self-Care Condition: Good Functional capacity at discharge: independent ambulation Overall status at discharge: patient is back to baseline - Discharge Instructions Instructions: Atrial Fibrillation (DC), Chest Pain (DC), Diabetes Mellitus Type 2 in Adults (DC) Follow Up With: Nova Ames MD [Primary Care Provider] - Fay Acevedo DO [Partnered Physician] - - Diet and Activity Activity: increase activity as tolerated Diet: diabetic diet, low fat, low cholesterol
[2017-04-23] MEDS ORDERED: *HR* Warfarin 3 MG TABLET PO ONE (18:00)
--- NOTE | 2017-04-24 15:16 | Physician Discharge Referral ---
Home Health/Hosp Referral Info Transfer to: Home Health Attending Provider: Viktoriya Ulloa Provider in Charge Post Discharge: PCP - Diagnosis (1) Chest pain Priority: Primary Status: Acute (2) Afib Priority: Secondary Status: Chronic (3) Chronic kidney disease, stage III (moderate) Priority: Secondary Status: Chronic (4) Diabetes mellitus Priority: Secondary Status: Chronic (5) Essential hypertension Priority: Secondary Status: Chronic - Respiratory Orders Smoking Cessation: Smoking cessation has been advised. For more information, call the [place] Tobacco Quit Line at 9-741-KBHH-NOW. - Services Needed Following services are medically necessary services: Nursing, Physical Therapy - Transfer Medications Prescriptions: Metoprolol [Lopressor] 50 mg PO BID #60 tablet Home Medications: Albuterol Sulfate [Albuterol Inhaler] 2 puff IH Q4H PRN 04/16/17 [History] Allopurinol [Zyloprim 300 MG] 300 mg PO DAILY 04/16/17 [History] Aspirin Enteric Coated [Aspirin EC] 81 mg PO DAILY 04/16/17 [History] Baclofen 20 mg PO BID 04/16/17 [History] GlipiZIDE [Glipizide ER] 10 mg PO DAILY 04/16/17 [History] Insulin DETEMIR [Levemir Flextouch] 30 unit SQ BID 04/16/17 [History] PARoxetine HCl [Paroxetine HCl] 40 mg PO DAILY 04/16/17 [History] Pantoprazole Sodium 40 mg PO DAILY 04/16/17 [History] Rosuvastatin Calcium 40 mg PO HS 04/16/17 [History] Terazosin HCl 10 mg PO HS 04/16/17 [History] Warfarin [Coumadin] 3 mg PO 1800 04/16/17 [History] Lisinopril [Zestril] 10 mg PO DAILY 04/22/17 [History] Metoprolol [Lopressor] 50 mg PO BID #60 tablet 04/23/17 [Rx] Allergies/Adverse Reactions: 3 Allergy/AdvReac Type Severity Reaction Status Date / Time Penicillins Allergy Hives Verified 04/22/17 13:06 Certification: Further, I certify that my clinical findings support that this patient is homebound (i.e. absences from home require considerable and taxing effort and are for medical reasons or roman catholic services or infrequently or short duration when for other reasons) because: Homebound Reason: Severity of cardiac or pulmonary status limits activity tolerance Attestation: My signature below is to certify that this patient is under my care and that I, or nurse practitioner, or a physician's child development assistant working with me, has a face-to -face encounter with this patient.
[2017-04-24] MEDS ORDERED: *HR* Warfarin 3 MG TABLET PO SCH (18:00)
== END 2017-04-23 16:43 | disposition home or self-care (01) ==
LOC: 3BNU 20:38 → EMEROO 20:38 → 3BNU 22:35
PROVIDERS: ADMIT Internal Medicine; ATTEND Registered Nurse

== ENCOUNTER 2017-05-20 00:38 | Inpatient (IN) ==
--- NOTE | 2017-05-20 00:46 | Emergency Department Note ---
Disposition Clinical Impression: Pleural effusion Chest pain Qualifiers: Chest pain type: precordial pain Qualified Code(s): R07.2 - Precordial pain Pneumonia Qualifiers: Pneumonia type: due to unspecified organism Laterality: right Lung location: lower lobe of lung Qualified Code(s): J18.1 - Lobar pneumonia, unspecified organism Pulmonary edema Qualifiers: Chronicity: acute Qualified Code(s): J81.0 - Acute pulmonary edema CHF (congestive heart failure) Qualifiers: Heart failure type: unspecified Heart failure chronicity: unspecified Qualified Code(s): I50.9 - Heart failure, unspecified Disposition: Admitted As Inpatient Condition: Fair Time of Disposition: 05:01 Chest Pain HPI - General Chief Complaint: ED Chest Pain Stated Complaint: chest pain Time Seen by Provider: 05/20/17 00:46 Source: patient, EMS Mode of arrival: EMS Limitations: no limitations Vital Signs Reviewed: Yes Nursing Notes Reviewed: Yes - History of Present Illness HPI Narrative: Patient is a 71-year-old male with past medical history of A. fib, hypertension , hyperlipidemia, CAD, pacer/defib placed. He presents today due to chest pain and shortness of breath. He states that this pain is substernal and began about an hour prior to arrival while at rest, sudden in onset. No radiation anywhere else. Associated with nausea. Denies any vomiting, fevers, sweating, productive cough, abdominal pain. He does admit to wheezing and shortness of breath as well, worse with exertion. He denies any history of COPD or CHF. - Related Data Home Medications Medication Instructions Recorded Confirmed Albuterol Sulfate [Albuterol 2 puff IH Q4H PRN 04/16/17 04/22/17 Inhaler] Allopurinol [Zyloprim 300 MG] 300 mg PO DAILY 04/16/17 04/22/17 Aspirin Enteric Coated [Aspirin EC] 81 mg PO DAILY 04/16/17 04/22/17 Baclofen 20 mg PO BID 04/16/17 04/22/17 GlipiZIDE [Glipizide ER] 10 mg PO DAILY 04/16/17 04/22/17 Insulin DETEMIR [Levemir Flextouch] 30 unit SQ BID 04/16/17 04/22/17 PARoxetine HCl [Paroxetine HCl] 40 mg PO DAILY 04/16/17 04/22/17 Pantoprazole Sodium 40 mg PO DAILY 04/16/17 04/22/17 Rosuvastatin Calcium 40 mg PO HS 04/16/17 04/22/17 Terazosin HCl 10 mg PO HS 04/16/17 04/22/17 Warfarin [Coumadin] 3 mg PO 1800 04/16/17 04/22/17 Lisinopril [Zestril] 10 mg PO DAILY 04/22/17 04/22/17 Previous Rx's Medication Instructions Recorded Metoprolol [Lopressor] 50 mg PO BID #60 tablet 04/23/17 Allergies Allergy/AdvReac Type Severity Reaction Status Date / Time Penicillins Allergy Hives Verified 04/22/17 13:06 All systems ED: reviewed and negative except as stated. Constitutional: Denies: fever Cardiovascular: Reports: chest pain, dyspnea on exertion Respiratory: Reports: dyspnea, wheezes. Denies: cough Gastrointestinal: Denies: abdominal pain, nausea, vomiting Genitourinary: Denies: urgency, dysuria Integumentary: Denies: rash Neurological: Denies: headache, weakness, numbness, paresthesias Chest Pain PMH - Past Medical History Medical history: Reports: atrial fibrillation, cardiomyopathy, coronary artery disease, CVA, GERD, hyperlipidemia, hypertension, TIA Psychiatric history: Reports: depression - Social History Smoking Status: Never smoker Alcohol use: Reports: none Drug use: Reports: none Physical Exam - General Limitations: no limitations General appearance: alert, in no apparent distress - Head Head exam: atraumatic, normocephalic, normal inspection - Eye Eye exam: Present: normal appearance, PERRL, EOMI - ENT ENT exam: normal exam, normal oropharynx, mucous membranes moist - Neck Neck exam: Present: normal inspection, full ROM, trachea midline - Chest Chest inspection: Present: normal inspection, symmetric chest wall rise - Respiratory Respiratory exam: Present: wheezes (Bilateral lower lobes), other (moderate increased work of breathing). Absent: stridor, prolonged expiratory phase - Cardiovascular Cardiovascular exam: Present: regular rate, normal rhythm, normal heart sounds - Abdominal Exam Abdominal exam: Present: soft, Non-Tender. Absent: tenderness, distention, guarding, rebound, rigidity - Extremities Exam Extremities exam: Present: normal inspection, full ROM. Absent: tenderness, pedal edema - Back Exam Back exam: Present: normal inspection, full ROM. Absent: tenderness - Neurological Exam Neurological exam: Present: alert, oriented X3 - Psychiatric Psychiatric exam: Present: normal affect, normal mood - Skin Skin exam: Present: warm, dry, intact, normal color Course Course Narrative: Patient was hypertensive on initial presentation. Otherwise, the rest of the vitals were within normal limits. Physical exam showed: Patient who had moderate increased work of breathing, wheezes at bilateral lower lobes. Patient was given DuoNeb breathing treatment. EKG was obtained and showed no acute ST changes. Troponin was drawn and was 0.04. Patient was given aspirin 325 by EMS prior to arrival. He is also given nitroglycerin and had improvement in his pain. Chest x-ray showed congestive heart failure with small effusions and mild to moderate interstitial edema. He also had possible right lower lobe pneumonia. Patient started on Levaquin for pneumonia. He was also given IV Lasix 40 mg for CHF. Patient will be admitted to hospitalist for further care. Chest X-Ray 05/20/17 00:46 IMPRESSION: Features of congestive heart failure, including small effusions and oglx-hh-dvhyyezr interstitial edema. More patchy right basilar opacity could represent atelectasis, aspiration or pneumonia. Recommend attention on follow-up. D/ / Carroll Gonzalez / Carroll Gonzalez Interpreting Provider: Carroll Gonzalez Vital Signs Temperature 97.4 F L 05/20/17 00:43 Pulse Rate 72 05/20/17 00:43 Respiratory Rate 20 05/20/17 00:43 Blood Pressure 198/115 05/20/17 00:43 O2 Sat by Pulse Oximetry 95 05/20/17 00:43 Temperature 97.4 F L 05/20/17 04:28 Pulse Rate 70 05/20/17 04:28 Respiratory Rate 18 05/20/17 04:28 Blood Pressure 179/97 05/20/17 04:28 O2 Sat by Pulse Oximetry 96 05/20/17 04:28 Oxygen Delivery Oxygen Delivery Nasal Cannula Chest Pain - MDM Narrative Medical decision making narrative: Patient was hypertensive on initial presentation. Otherwise, the rest of the vitals were within normal limits. Physical exam showed: Patient who had moderate increased work of breathing, wheezes at bilateral lower lobes. Patient was given DuoNeb breathing treatment. EKG was obtained and showed no acute ST changes. Troponin was drawn and was 0.04. Patient was given aspirin 325 by EMS prior to arrival. He is also given nitroglycerin and had improvement in his pain. Chest x-ray showed congestive heart failure with small effusions and mild to moderate interstitial edema. He also had possible right lower lobe pneumonia. Patient started on Levaquin for pneumonia. He was also given IV Lasix 40 mg for CHF. Patient will be admitted to hospitalist for further care. - Medical Records Medical records reviewed: Yes I reviewed the patient's medical records. - Lab Data Lab results reviewed: Yes I reviewed the patient's lab results. Result diagrams: 05/20/17 00:56 05/20/17 00:56 Lab Results 05/20/17 05/20/17 05/20/17 Range/Units 00:46 00:56 00:56 WBC 9.1 (4.3-11.1) K/mcL RBC 4.29 (4.19-5.50) M/mcL Hgb 13.2 (12.9-16.9) g/dL Hct 39.3 (37.5-50.1) % MCV 91.6 (83.0-100.0) fL MCH 30.8 (28.0-33.3) pg MCHC 33.6 (31.6-35.5) g/dL RDW 14.5 (11.5-14.5) % Plt Count 108 L (140-400) K/mcL MPV 11.6 (9.4-12.4) fL Immature Gran % 0.3 (0-4) % Seg Neutrophils % 68.1 % Lymphocytes % 19.7 % Monocytes % 5.7 % Eosinophils % 5.7 % Basophils % 0.5 % Neutrophils # 6.2 (1.6-8.9) K/mcL Lymphocytes # 1.8 (0.6-4.6) K/mcL Monocytes # 0.5 (0.0-1.3) K/mcL Eosinophils # 0.5 (0.0-0.6) K/mcL Basophils # 0.1 (0.0-0.2) K/mcL PT 17.8 H (9.4-12.1) Seconds INR 1.6 APTT 33.1 (26.0-36.0) Seconds Sodium 140 (136-145) mEq/L Potassium 3.8 (3.5-5.1) mEq/L Chloride 105 (98-107) mEq/L Carbon Dioxide 29 (23-29) mEq/L BUN 14 (8-23) mg/dL Creatinine 1.48 H (0.70-1.30) mg/dL Est GFR ( Amer) 57 L (> 60) Est GFR (Non-Af Amer) 47 L (> 60) BUN/Creatinine Ratio 9 (6-26) Glucose 189 H (70-105) mg/dL Calculated Osmolality 296 (280-300) Calcium 8.8 (8.6-10.3) mg/dL Troponin I 0.04 H* (< 0.04) ng/mL - Radiology Data Radiology results reviewed: Yes I reviewed the patient's radiology results. Chest X-Ray 05/20/17 00:46 IMPRESSION: Features of congestive heart failure, including small effusions and okgz-ah-aqggbnsx interstitial edema. More patchy right basilar opacity could represent atelectasis, aspiration or pneumonia. Recommend attention on follow-up. D/ / Carroll Gonzalez / Carroll Gonzalez Interpreting Provider: Carroll Gonzalez - EKG Data EKG attestation: Yes I reviewed and interpreted this EKG. EKG results narrative: 05/20/2017 at 00:46. Paced rhythm. Rate 72. ND 160. QRS is 182. QTC 477. left axis deviation. No acute ST elevation or depression. S.B.A.R. - S.B.A.R. Situation: Demographics, MOA Background: Presenting Complaint, Relevant PMH, Meds, & Allergies Assessment: Vital Signs, Course and respsone to treatment, Exam Concerns, Patient/Family Expectation, Pertinant Lab Results, Outstanding Labs Recommendation: Barrier(s) to disposition, Recommendation based on pending studies, treatments, or consults S.B.A.R. Report Given to: Dr. Burnett
[2017-05-20] MEDS ORDERED: Nitroglycerin 0.4 MG TAB.SUBL SL PRN (00:52)
[2017-05-20] MEDS ORDERED: Aspirin 325 MG TABLET PO ONE (00:52)
[2017-05-20 01:13] LABS: Basophils # 0.1 K/mcL (0.0-0.2); Basophils % 0.5 %; Eosinophils # 0.5 K/mcL (0.0-0.6); Eosinophils % 5.7 %; Hematocrit 39.3 % (37.5-50.1); Hemoglobin 13.2 g/dL (12.9-16.9); Immature Granulocytes % 0.3 % (0-4); Lymphocytes # 1.8 K/mcL (0.6-4.6); Lymphocytes % 19.7 %; Mean Corpuscular HGB Conc 33.6 g/dL (31.6-35.5); Mean Corpuscular Hemoglobin 30.8 pg (28.0-33.3); Mean Corpuscular Volume 91.6 fL (83.0-100.0); Mean Platelet Volume 11.6 fL (9.4-12.4); Monocytes # 0.5 K/mcL (0.0-1.3); Monocytes % 5.7 %; Neutrophils # 6.2 K/mcL (1.6-8.9); Platelet Count 108 K/mcL (140-400); Red Blood Count 4.29 M/mcL (4.19-5.50); Red Cell Distribution Width 14.5 % (11.5-14.5); Segmented Neutrophils % 68.1 %
[2017-05-20 01:20] LABS: INR 1.6; Prothrombin Time 17.8 Seconds (9.4-12.1)
[2017-05-20 01:22] LABS: Activated Partial Thrombo Time 33.1 Seconds (26.0-36.0)
[2017-05-20 01:25] LABS: Calcium 8.8 mg/dL (8.6-10.3); Potassium 3.8 mEq/L (3.5-5.1)
[2017-05-20 01:44] LABS: Troponin I 0.04 ng/mL (< 0.04)
[2017-05-20] MEDS ORDERED: Ipratropium/Albuterol Neb 3 ML ONE (02:11)
[2017-05-20] MEDS ORDERED: Furosemide 40 MG/4 ML VIAL ONE (03:06)
[2017-05-20] MEDS ORDERED: Levofloxacin 500 MG/100 ML 500 MG/100 ML BAG IVPB ONE (03:06)
[2017-05-20] MEDS ORDERED: *HR* Dextrose 50 % in Water (Syg) 50 ML SYRINGE IVP PRN (03:40)
[2017-05-20] MEDS ORDERED: Dextrose Gel 15 GM/37.5 ML TUBE PO PRN ×2 (03:40)
[2017-05-20] MEDS ORDERED: D5% in Water 1,000 ML IVC PRN (03:40)
[2017-05-20] MEDS ORDERED: Naloxone 0.4 MG/ML INJ IVP PRN (03:41)
[2017-05-20] MEDS ORDERED: Acetaminophen 325 MG TABLET PO PRN (03:41)
--- NOTE | 2017-05-20 03:46 | Emergency Department Note ---
START Narrative - START START: I examined this patient and my medical decision-making was reviewed with the Resident Physician. I agree with the documented findings, disposition and treatment plan as described except to the extent set forth below. This was a 71-year-old male who presented to the emergency room for chest pain. His workup here on his chest x-ray was concerning for right-sided pneumonia with possible congestive heart failure findings. His legs are not swollen. He has no history of congestive heart failure. This is likely more infectious etiology which is causing his shortness of breath and chest pain. Nonetheless she will be worked up from a cardiac standpoint as well. Patient will be admitted. We will start him on IV antibiotics. Patient was started on Levaquin.
--- NOTE | 2017-05-20 03:49 | Internal Med History&Physical ---
Date of Encounter: 05/20/17 Time of Encounter: 03:45 Internal Medicine - H&P: HPI Chief complaint: Shortness of Breath Admitted From: Emergency Dept Plans for Post Hospital Care: Home History of present illness: Mr. 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 He says he started feeling shortness of breath as he was walking to bed. He has had a cough all day. No fever. When he went to lay in bed he started feeling significant shortness of breath and couldn't lay flat. He also reports some chest discomfort about 3/10 that is not constant that started with his shortness of breath with no radiation. He called EMS who brought him in. Reportedly his sats were in the 80s on RA and he was put on supplemental oxygen. Work up in the ED showed findings consistent with CHF and right basilar opacity consistent with pneumonia. The patient received Levaquin and 40 mg IV lasix in the ED and nebs. His labs showed findings consistent with CKD and trops at .04. No headache, blurry vision, nausea, vomiting, abdominal pain, urinary symptoms, or neurolorgical symptoms. Past Med Surg Social Fam HX - Past Medical History Medical history: atrial fibrillation, cardiomyopathy, coronary artery disease, CVA, GERD, hyperlipidemia, hypertension, TIA Psychiatric history: depression - Social History Smoking Status: Never smoker Smokeless Tobacco Status: No Alcohol use: none Drug use: none - Family History Father Hx Family Cardiac Disorders: Yes (Pacemaker) Mother Adopted: No Hx Family Cardiac Disorders: Yes ("Arteries clogged") Hx Family Endocrine Disorder: Yes (Diabetic) Internal Medicine - H&P: Meds Albuterol Sulfate [Albuterol Inhaler] 2 puff IH Q4H PRN 04/16/17 [History] Allopurinol [Zyloprim 300 MG] 300 mg PO DAILY 04/16/17 [History] Aspirin Enteric Coated [Aspirin EC] 81 mg PO DAILY 04/16/17 [History] Baclofen 20 mg PO BID 04/16/17 [History] GlipiZIDE [Glipizide ER] 10 mg PO DAILY 04/16/17 [History] Insulin DETEMIR [Levemir Flextouch] 30 unit SQ BID 04/16/17 [History] PARoxetine HCl [Paroxetine HCl] 40 mg PO DAILY 04/16/17 [History] Pantoprazole Sodium 40 mg PO DAILY 04/16/17 [History] Rosuvastatin Calcium 40 mg PO HS 04/16/17 [History] Terazosin HCl 10 mg PO HS 04/16/17 [History] Warfarin [Coumadin] 3 mg PO 1800 04/16/17 [History] Lisinopril [Zestril] 10 mg PO DAILY 04/22/17 [History] Metoprolol [Lopressor] 50 mg PO BID #60 tablet 04/23/17 [Rx] 3 Allergy/AdvReac Type Severity Reaction Status Date / Time Penicillins Allergy Hives Verified 04/22/17 13:06 All Systems PM: A 10-system review of systems was performed and is negative for pertinent findings except as documented above in the HPI. Review of systems: All systems reviewed are negative except for as mentioned above - Constitutional Vitals: Temp Pulse Resp BP Pulse Ox 97.4 F L 72 20 198/115 95 05/20/17 00:43 05/20/17 00:43 05/20/17 00:43 05/20/17 00:43 05/20/17 00:43 Exam: GEN: NAD HEENT: AT, NC, No cyanosis, oral mucosa is moist, No JVD Lymphatics: No lymphadenoapthy Eyes: Extrocular muscles intact, anicteric CVS:RRR. S1, S2, No m/r/g RESP: Diminished or rhonchi as well as bibasilar crackles. ABD: Soft, NT, distended, +BS EXT: 1+ edema, No rashes, 2+ DP NEURO: Nonfocal, CN II-XII intact, No focal motor or sensory deficits Psych: Cooperative, Not anxious or depressed Internal Med - H&P Results - Labs CBC & Chem 7: 05/20/17 00:56 05/20/17 00:56 Labs: Short CBC 05/20/17 Range/Units 00:56 WBC 9.1 (4.3-11.1) K/mcL Hgb 13.2 (12.9-16.9) g/dL Hct 39.3 (37.5-50.1) % Plt Count 108 L (140-400) K/mcL Neutrophils # 6.2 (1.6-8.9) K/mcL BMP 05/20/17 00:56 Sodium 140 Potassium 3.8 Chloride 105 Carbon Dioxide 29 BUN 14 Creatinine 1.48 H Glucose 189 H Calcium 8.8 Cardiac Enzymes 05/20/17 Range/Units 00:56 Troponin I 0.04 H* (< 0.04) ng/mL - Impressions ITS Impressions Chest X-Ray 05/20/17 00:46 IMPRESSION: Features of congestive heart failure, including small effusions and kodj-va-gmyrwmad interstitial edema. More patchy right basilar opacity could represent atelectasis, aspiration or pneumonia. Recommend attention on follow-up. D/ / Carroll Gonzalez / Carroll Gonzalez Interpreting Provider: Carroll Gonzalez - Assessment and plan (1) Acute respiratory failure with hypoxia Current Visit: Yes Status: Acute Assessment and plan: Multifactorial with CHF exacerbation and HCAP. We will treat underlying cause as below. (2) HCAP (healthcare-associated pneumonia) Current Visit: Yes Status: Acute Assessment and plan: Patient was discharged from hospital last month for chest pain. Put the patient on HCAP coverage with vancomycin and cefepime. Check sputum culture. Check urine strep and Legionella. Nebulizers. O2 support as needed. (3) Acute exacerbation of CHF (congestive heart failure) Current Visit: Yes Status: Acute Assessment and plan: We will diurese the patient with IV Lasix 40 mg twice a day. Monitor I&O's. Fluid restriction. Resume cardiac meds. Patient had a negative stress test last month. Echocardiogram done last month showed preserved EF with some LVH with indeterminate diastolic function. Qualifiers: Heart failure type: diastolic Qualified Code(s): I50.33 - Acute on chronic diastolic (congestive) heart failure (4) Elevated troponin Current Visit: Yes Status: Acute Assessment and plan: EKG with no ST or T-wave abnormalities that are acute. Troponins are elevated at 0.04 but are likely demand ischemia. We will trend cardiac enzymes were now. The patient recently had ischemic workup with a negative stress test last month. We will trend cardiac enzymes. (5) Afib Current Visit: No Status: Chronic Assessment and plan: Resume anticoagulation with Coumadin. Resume beta sarah. Qualifiers: Atrial fibrillation type: persistent Qualified Code(s): I48.1 - Persistent atrial fibrillation (6) Chronic kidney disease, stage III (moderate) Current Visit: No Status: Chronic Assessment and plan: Patient follows up with nephrology. Kidney function is around baseline. Will continue to monitor (7) Diabetes mellitus Current Visit: No Status: Chronic Assessment and plan: We will place the patient on insulin sliding scale. Resume home Levemir 30 units twice a day. Accu-Cheks. Diabetic diet. Qualifiers: Diabetes mellitus type: type 2 Diabetes mellitus correction insulin use: with correction use Diabetes mellitus complication status: with kidney complications Diabetes mellitus complication detail: with chronic kidney disease Chronic kidney disease stage: stage 3 (moderate) Qualified Code(s): E11.22 - Type 2 diabetes mellitus with diabetic chronic kidney disease; N18.3 - Chronic kidney disease, stage 3 (moderate); N18.3 - Chronic kidney disease, stage 3 (moderate); Z79.4 - detention (current) use of insulin; Z79.4 - detention (current) use of insulin; Z79.4 - detention (current) use of insulin; Z79.4 - life care planner (current) use of insulin (8) Essential hypertension Current Visit: No Status: Chronic Assessment and plan: Patient's blood pressure is elevated on admission but is coming down with diuresis. Resume home antihypertensives. We will order IV hydralazineprn. (9) CAD (coronary artery disease) Current Visit: No Status: Chronic Assessment and plan: Continue previous home cardiac meds including aspirin, statin, beta sarah. Qualifiers: Coronary Disease-Associated Artery/Lesion type: bypass graft [place] vs. transplanted heart: [place] heart Associated angina: without angina Qualified Code(s): I25.810 - Atherosclerosis of coronary artery bypass graft(s) without angina pectoris (10) H/O: CVA (cerebrovascular accident) Current Visit: Yes Status: Acute Assessment and plan: Continue with aspirin and statin. (11) DVT prophylaxis Current Visit: Yes Status: Acute Assessment and plan: Patient is on Coumadin. - Time Spent With Patient Total time spent is greater than 50% in coordination of care (as documented) at patient's floor/unit and/or counseling patient:
[2017-05-20] MEDS ORDERED: Vancomycin 1,750 MG in 0.9 % Sodium Chloride 250 ML IVPB SCH (04:00)
[2017-05-20 04:38] LABS: Basophils % 0.5 %; Eosinophils # 0.3 K/mcL (0.0-0.6); Eosinophils % 4.1 %; Hematocrit 39.4 % (37.5-50.1); Immature Granulocytes % 0.4 % (0-4); Lymphocytes # 1.5 K/mcL (0.6-4.6); Lymphocytes % 19.6 %; Mean Corpuscular Hemoglobin 30.8 pg (28.0-33.3); Mean Corpuscular Volume 93.4 fL (83.0-100.0); Mean Platelet Volume 11.1 fL (9.4-12.4); Monocytes # 0.4 K/mcL (0.0-1.3); Monocytes % 5.8 %; Neutrophils # 5.3 K/mcL (1.6-8.9); Platelet Count 102 K/mcL (140-400); Red Blood Count 4.22 M/mcL (4.19-5.50); Red Cell Distribution Width 14.6 % (11.5-14.5); Segmented Neutrophils % 69.6 %
[2017-05-20 04:59] LABS: Calcium 8.5 mg/dL (8.6-10.3); Magnesium 1.6 mg/dL (1.6-2.6); Potassium 3.5 mEq/L (3.5-5.1)
[2017-05-20] MEDS ORDERED: Cefepime HCl 1,000 MG in Water for inj. (sterile) 20 ML 10 ML IVPB SCH (06:00)
[2017-05-20] MEDS: Ipratropium/Albuterol Neb 3 ML IH SCH ×5 (07:21→23:50)
[2017-05-20] MEDS: Furosemide 40 MG/4 ML VIAL IVP SCH ×2 (08:33→17:51)
[2017-05-20] MEDS: Insulin DETEMIR 100 UNIT/ML X5UNITS SQ SCH ×2 (08:33→22:22)
[2017-05-20] MEDS: Insulin LISPRO 300 UNITS/3 ML VIAL SQ SCH ×4 (08:33→22:23)
[2017-05-20] MEDS ORDERED: Aminoglycoside Consult 1 EACH MC ONE (08:34)
[2017-05-20] MEDS: Metoprolol XL (24 HR) Succ 50 MG TAB.ER.24H PO SCH (17:52)
[2017-05-20] MEDS ORDERED: Warfarin perPT PO PRN (18:00)
[2017-05-20] MEDS ORDERED: *HR* Warfarin 3 MG TABLET PO ONE (18:00)
[2017-05-20] MEDS ORDERED: Insulin DETEMIR 100 UNIT/ML X5UNITS SQ SCH (21:00)
[2017-05-21] MEDS: Ondansetron 4 MG/2 ML VIAL IVP PRN ×2 (05:20→22:15)
[2017-05-21] MEDS: Ipratropium/Albuterol Neb 3 ML IH SCH ×5 (05:24→20:28)
[2017-05-21] MEDS ORDERED: Ondansetron 4 MG/2 ML VIAL IVP SCH (06:00)
[2017-05-21 06:57] LABS: INR 1.4; Prothrombin Time 15.1 Seconds (9.4-12.1)
[2017-05-21] MEDS: Insulin LISPRO 300 UNITS/3 ML VIAL SQ SCH ×4 (07:33→22:11)
[2017-05-21] MEDS: Aspirin Enteric Coated 81 MG Tablet PO SCH (08:51)
[2017-05-21] MEDS: Insulin DETEMIR 100 UNIT/ML X5UNITS SQ SCH ×2 (08:51→22:14)
[2017-05-21] MEDS: Furosemide 40 MG/4 ML VIAL IVP SCH (08:51)
[2017-05-21] MEDS: Levofloxacin 500 MG/100 ML 500 MG/100 ML BAG IVPB SCH (08:52)
[2017-05-21] MEDS: Metoprolol XL (24 HR) Succ 50 MG TAB.ER.24H PO SCH (08:55)
[2017-05-21] MEDS: Furosemide 40 MG TABLET PO SCH (16:03)
[2017-05-21] MEDS ORDERED: *HR* Warfarin 5 MG TABLET PO ONE (18:00)
--- NOTE | 2017-05-21 18:00 | Internal Med Progress Note ---
Date of Encounter: 05/21/17 Time of Encounter: 13:00 - Assessment and plan (1) Acute exacerbation of CHF (congestive heart failure) Status: Acute Assessment and plan: Echocardiogram from last month showed preserved ejection fraction, mild concentric LVH, indeterminate diastolic function, mild mitral regurgitation. Patient is not noted to be on diuretics at home. Responding well to IV diuresis with Lasix with nectar negative fluid balance of at least 2.5 L. Will change diuretics to oral Lasix. Continue fluid restriction, patient is unaware of this and tends to drink more fluids as he is urinating more. Urine output monitoring. Continue beta sarah and LUKE inhibitor. Qualifiers: Heart failure type: diastolic Qualified Code(s): I50.33 - Acute on chronic diastolic (congestive) heart failure (2) HCAP (healthcare-associated pneumonia) Status: Suspected Assessment and plan: Blood cultures were not sent from the emergency room. Urine legionella and Streptococcus pneumoniae antigens negative. Improving clinically. Continue IV Levaquin. Supportive care and supplemental oxygen. (3) Acute respiratory failure with hypoxia Status: Resolved Assessment and plan: Due to pneumonia and CHF. Improving oxygen requirements. Wean down FiO2 as tolerated. (4) Afib Status: Chronic Assessment and plan: Rate-controlled; continue beta sarah and anticoagulation with Coumadin. INR noted to be 1.4. Qualifiers: Atrial fibrillation type: persistent Qualified Code(s): I48.1 - Persistent atrial fibrillation (5) Chronic kidney disease, stage III (moderate) Status: Chronic Assessment and plan: Serum creatinine at baseline. Avoid new nephrotoxic agents and continue to monitor closely. (6) Diabetes mellitus Status: Chronic Assessment and plan: Blood sugars noted to be well controlled. Continue basal bolus insulin regimen. Diabetic diet. Qualifiers: Diabetes mellitus type: type 2 Diabetes mellitus rodent exterminator insulin use: with rodent exterminator use Diabetes mellitus complication status: with kidney complications Diabetes mellitus complication detail: with chronic kidney disease Chronic kidney disease stage: stage 3 (moderate) Qualified Code(s): E11.22 - Type 2 diabetes mellitus with diabetic chronic kidney disease; N18.3 - Chronic kidney disease, stage 3 (moderate); N18.3 - Chronic kidney disease, stage 3 (moderate); Z79.4 - ad terminal makeup operator (current) use of insulin; Z79.4 - ad terminal makeup operator (current) use of insulin; Z79.4 - snf (current) use of insulin; Z79.4 - ad terminal makeup operator (current) use of insulin (7) Essential hypertension Status: Chronic Assessment and plan: Blood pressure noted to be elevated at admission, now better controlled. Continue home medications. (8) CAD (coronary artery disease) Status: Chronic Qualifiers: Coronary Disease-Associated Artery/Lesion type: bypass graft [place] vs. transplanted heart: [place] heart Associated angina: without angina Qualified Code(s): I25.810 - Atherosclerosis of coronary artery bypass graft(s) without angina pectoris (9) H/O: CVA (cerebrovascular accident) Status: Chronic (10) Elevated troponin Status: Acute Assessment and plan: Mild troponin leak, now normal. Likely related to acute CHF. Continue telemetry monitoring. - Time Spent With Patient Total time spent is greater than 50% in coordination of care (as documented) at patient's floor/unit and/or counseling patient: - Subjective Interval history: Reports feeling much better; improving shortness of breath and leg swelling; O2 requirements improving; noted to have some tremors after breathing treatments; - Constitutional Vitals: Temp Pulse Resp BP Pulse Ox 97.7 F 70 17 160/90 94 05/21/17 16:54 05/21/17 16:54 05/21/17 16:54 05/21/17 16:54 05/21/17 16:54 General appearance: Present: A&O X 3, obese, answers questions appropriately - Respiratory Respiratory exam: Present: CTAB (faint bibasal crackles). Absent: accessory muscle use, rales, rhonchi, wheezes - Cardiovascular Cardiovascular exam: Present: RRR, +S1, +S2. Absent: diastolic murmur, gallop, rubs, systolic murmur - GI/Abdominal GI/Abdominal exam: Present: normal bowel sounds, soft (obese), no peritoneal signs. Absent: distended, tenderness - Extremities Exam Extremities exam: Present: full ROM, pedal edema (improving), warm, radial pulses palpable and symmetrical. Absent: calf tenderness, cyanotic Internal Medicine: Result - Labs CBC & Chem 7: 05/20/17 04:25 05/22/17 05:38 - ABG Interpretation ABG results: PT/INR, D-dimer PT 15.1 Seconds (9.4-12.1) H 05/21/17 06:18 Consult Discharge Plan - Plan Instructions: Heart Failure (DC) Additional Instructions: F/up with PCP IN 1-2 weeks Referrals: Nova Ames MD [Primary Care Provider] - 05/28/17 11:15 am Prescriptions: Furosemide [Lasix] 40 mg PO DAILY #30 tablet Levofloxacin [Levaquin] 750 mg PO Q48H #3 tablet
--- NOTE | 2017-05-21 23:59 | Electrocardiograph Report ---
[place] [address] Test Date: 2017-05-20 Pat Name: Andrew Vigil Department: 103 Room: 3A Gender: M Cleaner: SIDNEY : 1945 Requested By: Lai Swanson Order Number: [id number] Reading MD: Sulma Humphries Measurements Intervals Diagonal Rate: 72 P: 171 PA: 160 QRS: -86 QRSD: 182 T: 15 QT: 453 QTc: 477 Interpretive Statements ELECTRONIC ATRIAL PACEMAKER ELECTRONIC VENTRICULAR PACEMAKER ABNORMAL RHYTHM ECG Electronically Signed On 05-21-2017 23:58:10 EDT by Sulma Humphries
[2017-05-22] MEDS: Ipratropium/Albuterol Neb 3 ML IH SCH ×4 (00:12→12:06)
[2017-05-22 06:08] LABS: INR 1.4; Prothrombin Time 15.2 Seconds (9.4-12.1)
[2017-05-22 07:28] LABS: Calcium 9.1 mg/dL (8.6-10.3); Magnesium 1.7 mg/dL (1.6-2.6); Potassium 2.9 mEq/L (3.5-5.1)
[2017-05-22] MEDS: Insulin LISPRO 300 UNITS/3 ML VIAL SQ SCH ×2 (09:07→11:42)
[2017-05-22] MEDS: Ondansetron 4 MG/2 ML VIAL IVP PRN (09:12)
[2017-05-22] MEDS: Metoprolol XL (24 HR) Succ 50 MG TAB.ER.24H PO SCH (09:17)
[2017-05-22] MEDS: Levofloxacin 500 MG/100 ML 500 MG/100 ML BAG IVPB SCH (09:18)
[2017-05-22] MEDS: Aspirin Enteric Coated 81 MG Tablet PO SCH (09:18)
[2017-05-22] MEDS: Furosemide 40 MG TABLET PO SCH ×2 (09:18→10:10)
[2017-05-22] MEDS: Insulin DETEMIR 100 UNIT/ML X5UNITS SQ SCH (09:19)
[2017-05-22 11:38] VITALS: BP 103/61
[2017-05-22] MEDS ORDERED: Potassium Chloride Elixir 20 MEQ/15 ML UDC PO ONE (12:30)
--- NOTE | 2017-05-22 12:51 | Discharge Summary ---
- NOTES TO OUTPATIENT PROVIDER Notes to Outpatient Provider: CHF and suspected PNA f/up Orders not resulted at time of discharge: Pending orders 05/23/17 04:00 INR/PT [Prothrombin Time INR] [COAG] AM 0400 Date of Encounter: 05/22/17 Time of Encounter: 12:49 - Discharge Diagnosis (1) Afib Priority: Secondary Status: Chronic Qualifiers: Atrial fibrillation type: persistent Qualified Code(s): I48.1 - Persistent atrial fibrillation (2) Chronic kidney disease, stage III (moderate) Priority: Secondary Status: Chronic (3) Diabetes mellitus Priority: Secondary Status: Chronic Qualifiers: Diabetes mellitus type: type 2 Diabetes mellitus fdc insulin use: with fdc use Diabetes mellitus complication status: with kidney complications Diabetes mellitus complication detail: with chronic kidney disease Chronic kidney disease stage: stage 3 (moderate) Qualified Code(s): E11.22 - Type 2 diabetes mellitus with diabetic chronic kidney disease; N18.3 - Chronic kidney disease, stage 3 (moderate); N18.3 - Chronic kidney disease, stage 3 (moderate); Z79.4 - long-term (current) use of insulin; Z79.4 - long-term (current) use of insulin; Z79.4 - emt intermediate (current) use of insulin; Z79.4 - long-term (current) use of insulin (4) Essential hypertension Priority: Secondary Status: Chronic (5) CAD (coronary artery disease) Priority: Secondary Status: Chronic Qualifiers: Coronary Disease-Associated Artery/Lesion type: bypass graft [place] vs. transplanted heart: [place] heart Associated angina: without angina Qualified Code(s): I25.810 - Atherosclerosis of coronary artery bypass graft(s) without angina pectoris (6) Acute respiratory failure with hypoxia Priority: Primary Status: Resolved (7) HCAP (healthcare-associated pneumonia) Priority: Primary Status: Suspected (8) Acute exacerbation of CHF (congestive heart failure) Priority: Primary Status: Acute Qualifiers: Heart failure type: diastolic Qualified Code(s): I50.33 - Acute on chronic diastolic (congestive) heart failure (9) H/O: CVA (cerebrovascular accident) Priority: Secondary Status: Chronic (10) Elevated troponin Priority: Primary Status: Acute Hospital course: Mr. Vigil is a 71 year old male with the above medical problems, who was admitted with exertional dyspnea and cough. He was started on treatment for acute CHF with iV diuresis, fluid restriction, urine output monitoring, along with broad spectrum IV antibiotics. He had significant urine output and symptomatically improved during this admission, was educated on fluid restriction. Echocardiogram from last month showed preserved ejection fraction, mild concentric LVH, indeterminate diastolic function, mild mitral regurgitation. Home O2 evaluation was done and he no longer requires supplemental O2, and is medically stable for discharge. Discharge discussed with: patient - Time Spent with Patient Total time spent providing and/or coordinating discharge services: Greater than 30 minutes (45 min) - Discharge Medications Prescriptions: Furosemide [Lasix] 40 mg PO DAILY #30 tablet Levofloxacin [Levaquin] 750 mg PO Q48H #3 tablet Home Medications: Albuterol Sulfate [Albuterol Inhaler] 2 puff IH Q4H PRN 04/16/17 [History] Allopurinol [Zyloprim 300 MG] 300 mg PO DAILY 04/16/17 [History] Aspirin Enteric Coated [Aspirin EC] 81 mg PO DAILY 04/16/17 [History] Baclofen 20 mg PO BID 04/16/17 [History] GlipiZIDE [Glipizide ER] 10 mg PO DAILY 04/16/17 [History] Insulin DETEMIR [Levemir Flextouch] 30 unit SQ BID 04/16/17 [History] PARoxetine HCl [Paroxetine HCl] 40 mg PO DAILY 04/16/17 [History] Pantoprazole Sodium 40 mg PO DAILY 04/16/17 [History] Rosuvastatin Calcium 40 mg PO HS 04/16/17 [History] Terazosin HCl 10 mg PO HS 04/16/17 [History] Warfarin [Coumadin] 3 mg PO 1800 04/16/17 [History] Lisinopril [Zestril] 10 mg PO DAILY 04/22/17 [History] Metoprolol Succinate 50 mg PO DAILY 05/20/17 [History] Furosemide [Lasix] 40 mg PO DAILY #30 tablet 05/22/17 [Rx] Levofloxacin [Levaquin] 750 mg PO Q48H #3 tablet 05/22/17 [Rx] Allergies/Adverse Reactions: 3 Allergy/AdvReac Type Severity Reaction Status Date / Time Penicillins Allergy Hives Verified 05/20/17 08:51 Date of admission: 05/20/17 03:44 Primary care physician: Nova Ames Consults: 05/21/17 10:49 Consult to Socket Puller [CONS] Routine Reason for SW Consult: advance directives, change of POA 05/22/17 09:27 Consult to Nurse Navigator [CONS] Routine Comment: chf education Discharging clinician: China Gonzalez Anticipated date of discharge: 05/22/17 - Constitutional Vitals: Temp Pulse Resp BP Pulse Ox 98.2 F 72 16 103/61 95 05/22/17 11:35 05/22/17 11:35 05/22/17 12:06 05/22/17 11:35 05/22/17 12:06 General appearance: Present: A&O X 3, answers questions appropriately - Respiratory Respiratory exam: Present: CTAB. Absent: accessory muscle use, rales, rhonchi, wheezes - Patient Status Disposition: Home Health Service Condition: Good Functional capacity at discharge: independent ambulation Overall status at discharge: patient is progressing back to baseline - Discharge Instructions Instructions: Heart Failure (DC) Follow Up With: Nova Ames MD [Primary Care Provider] - 05/28/17 11:15 am Forms: ED Satisfaction Letter Additional Instructions: F/up with PCP IN 1-2 weeks - Diet and Activity Activity: resume usual activities as tolerated Diet: diabetic diet, low fat, low cholesterol, low salt diet (fluid restriction to 1.2L/day)
--- NOTE | 2017-05-22 13:02 | Physician Discharge Referral ---
Home Health/Hosp Referral Info Transfer to: Home Health Attending Provider: China Gonzalez Provider in Charge Post Discharge: PCP - Diagnosis (1) Afib Priority: Secondary Status: Chronic (2) Chronic kidney disease, stage III (moderate) Priority: Secondary Status: Chronic (3) Diabetes mellitus Priority: Secondary Status: Chronic (4) Essential hypertension Priority: Secondary Status: Chronic (5) CAD (coronary artery disease) Priority: Secondary Status: Chronic (6) Acute respiratory failure with hypoxia Priority: Primary Status: Resolved (7) HCAP (healthcare-associated pneumonia) Priority: Primary Status: Suspected (8) Acute exacerbation of CHF (congestive heart failure) Priority: Primary Status: Acute (9) H/O: CVA (cerebrovascular accident) Priority: Secondary Status: Chronic (10) Elevated troponin Priority: Primary Status: Acute - Respiratory Orders Smoking Cessation: Smoking cessation has been advised. For more information, call the [place] Tobacco Quit Line at 5-381-UAVP-NOW. - Diet/Nutrition Diet/Nutrition Orders: Renal, Cardiac, No Concentrated Sweets (diabetic) - Activity Activity Orders: Ambulate - Services Needed Following services are medically necessary services: Nursing, Physical Therapy, Occupational Therapy - Transfer Medications Prescriptions: Furosemide [Lasix] 40 mg PO DAILY #30 tablet Levofloxacin [Levaquin] 750 mg PO Q48H #3 tablet Home Medications: Albuterol Sulfate [Albuterol Inhaler] 2 puff IH Q4H PRN 04/16/17 [History] Allopurinol [Zyloprim 300 MG] 300 mg PO DAILY 04/16/17 [History] Aspirin Enteric Coated [Aspirin EC] 81 mg PO DAILY 04/16/17 [History] Baclofen 20 mg PO BID 04/16/17 [History] GlipiZIDE [Glipizide ER] 10 mg PO DAILY 04/16/17 [History] Insulin DETEMIR [Levemir Flextouch] 30 unit SQ BID 04/16/17 [History] PARoxetine HCl [Paroxetine HCl] 40 mg PO DAILY 04/16/17 [History] Pantoprazole Sodium 40 mg PO DAILY 04/16/17 [History] Rosuvastatin Calcium 40 mg PO HS 04/16/17 [History] Terazosin HCl 10 mg PO HS 04/16/17 [History] Warfarin [Coumadin] 3 mg PO 1800 04/16/17 [History] Lisinopril [Zestril] 10 mg PO DAILY 04/22/17 [History] Metoprolol Succinate 50 mg PO DAILY 05/20/17 [History] Furosemide [Lasix] 40 mg PO DAILY #30 tablet 05/22/17 [Rx] Levofloxacin [Levaquin] 750 mg PO Q48H #3 tablet 05/22/17 [Rx] Allergies/Adverse Reactions: 3 Allergy/AdvReac Type Severity Reaction Status Date / Time Penicillins Allergy Hives Verified 05/20/17 08:51 Certification: Further, I certify that my clinical findings support that this patient is homebound (i.e. absences from home require considerable and taxing effort and are for medical reasons or church services or infrequently or short duration when for other reasons) because: Homebound Reason: Patient requires assistance of a person or device to safely leave home, Leaving home requires considerable and taxing effort due to condition Attestation: My signature below is to certify that this patient is under my care and that I, or nurse practitioner, or a physician's practice assistant working with me, has a face-to -face encounter with this patient.
[2017-05-22] MEDS ORDERED: *HR* Warfarin 5 MG TABLET PO ONE (18:00)
== END 2017-05-22 16:03 | disposition home health service (06) | DRG 291 ==
LOC: EMEROO 00:38 → 2SOUTHHOLD 00:38 → SUATTDRO 03:44 → 2SOUTHHOLD 04:09 → 3ANU 05-21 16:39
PROVIDERS: ADMIT Internal Medicine; ATTEND Internal Medicine

== ENCOUNTER 2019-01-07 18:12 | Inpatient (IN) ==
[2019-01-07 18:40] LABS: Bilirubin,Urine Negative (Negative); Blood,Urine Small (Negative); Clarity,Urine Clear (Clear); Color,Urine Yellow (Yellow); Glucose,Urine (UA) >=1000 mg/dL (Normal); Ketones,Urine Negative (Negative); Leukocyte Esterase,Urine Negative (Negative); Nitrite,Urine Negative (Negative); Protein,Urine 100 mg/dL (Neg-Trace); Specific Gravity,Urine 1.023 (1.010-1.025); Urobilinogen,Urine Normal (Normal)
[2019-01-07 18:44] LABS: Bacteria,Urine None Seen per hpf (None-Few); Hyaline Casts,Urine None Seen per lpf (None-Few); RBC,Urine 0-3 per hpf (0-3); Squamous Epithelial Cell,Urine Few per lpf (None-Few); WBC,Urine 0-3 per hpf (0-3)
[2019-01-07 18:50] LABS: Amphetamine Screen,Urine Negative ng/mL (Cutoff=1000); Barbiturate Screen,Urine Negative ng/mL (Cutoff=200); Benzodiazepines Screen,Urine Negative ng/mL (Cutoff=200); Cannabinoid Screen,Urine Positive ng/mL (Cutoff = 50); Cocaine Screen,Urine Negative ng/mL (Cutoff= 300); Opiate Screen,Urine Negative ng/mL (Cutoff=300); Phencyclidine Screen,Urine Negative ng/mL (Cutoff=25)
[2019-01-07 19:03] LABS: Basophils % 0.6 %; Eosinophils # 0.2 K/mcL (0.0-0.6); Eosinophils % 3.3 %; Hematocrit 41.2 % (37.5-50.1); Hemoglobin 14.1 g/dL (12.9-16.9); Immature Granulocytes % 0.3 % (0-4); Lymphocytes # 1.3 K/mcL (0.6-4.6); Mean Corpuscular HGB Conc 34.2 g/dL (31.6-35.5); Mean Corpuscular Hemoglobin 30.7 pg (28.0-33.3); Mean Corpuscular Volume 89.8 fL (83.0-100.0); Mean Platelet Volume 12.1 fL (9.4-12.4); Monocytes # 0.5 K/mcL (0.0-1.3); Monocytes % 7.4 %; Neutrophils # 4.3 K/mcL (1.6-8.9); Platelet Count 120 K/mcL (140-400); Red Blood Count 4.59 M/mcL (4.19-5.50); Red Cell Distribution Width 14.2 % (11.5-14.5); Segmented Neutrophils % 68.4 %; White Blood Count 6.3 K/mcL (4.3-11.1)
[2019-01-07 19:09] LABS: INR 1.6; Prothrombin Time 17.8 Seconds (9.4-12.1)
[2019-01-07 19:29] LABS: Alanine Aminotransferase 15 Units/L (7-52); Albumin 3.9 g/dL (3.5-5.7); Albumin/Globulin Ratio 1.5 (1.1-2.2); Alkaline Phosphatase 106 Units/L (34-104); Aspartate Amino Transferase 18 Units/L (13-39); BUN/Creatinine Ratio 14 (6-26); Bilirubin,Direct 0.2 mg/dL (0.0-0.2); Bilirubin,Indirect 0.8 mg/dL (0.0-1.0); Blood Urea Nitrogen 23 mg/dL (8-23); Calcium 9.7 mg/dL (8.6-10.3); Carbon Dioxide 30 mEq/L (23-29); Chloride 99 mEq/L (98-107); Ethanol < 10 mg/dL (Less than 10); Globulin 2.6 g/dL (2.4-3.5); Glucose 392 mg/dL (70-105); Lipase 22 Units/L (11-82); Magnesium 1.9 mg/dL (1.6-2.6); Osmolality,Calculated 306 (280-300); Potassium 3.8 mEq/L (3.5-5.1); Sodium 138 mEq/L (136-145); Total Protein 6.5 g/dL (6.4-8.9); Troponin I 0.04 ng/mL (< 0.04); eGFR For African Americans 50 (> 60); eGFR For Non-African Americans 42 (> 60)
[2019-01-07] MEDS ORDERED: Ondansetron 4 MG/2 ML VIAL IVP ONE (19:36)
[2019-01-07 19:41] LABS: Thyroid Stimulating Hormone 4.832 mcIU/mL (0.340-5.600)
[2019-01-07] MEDS ORDERED: 0.9 % Sodium Chloride 1,000 ML IVC STA (20:13)
[2019-01-07] MEDS ORDERED: Aspirin Enteric Coated 325 MG Tablet PO ONE (22:34)
[2019-01-07] MEDS ORDERED: Naloxone 0.4 MG/ML INJ IVP PRN (22:34)
[2019-01-07] MEDS ORDERED: *HR* Dextrose 50 % in Water (Syg) 50 ML SYRINGE IVP PRN (22:41)
[2019-01-07] MEDS ORDERED: Dextrose Gel 15 GM/37.5 ML TUBE PO PRN ×2 (22:41)
[2019-01-07] MEDS ORDERED: D5% in Water 1,000 ML IVC PRN (22:41)
[2019-01-07 22:50] LABS: INR 1.5; Prothrombin Time 17.1 Seconds (9.4-12.1)
[2019-01-07 22:52] LABS: Estimated Average Glucose 217 mg/dl
[2019-01-07 22:55] LABS: VBG HCO3 28 mEq/L (21-27); VBG PCO2 42 mmHg (41-51); VBG PH 7.44 pH Units (7.32-7.42); VBG PO2 141 mmHg (25-50)
[2019-01-07 23:05] LABS: Albumin 3.8 g/dL (3.5-5.7); Albumin/Globulin Ratio 1.6 (1.1-2.2); Bilirubin,Direct 0.2 mg/dL (0.0-0.2); Bilirubin,Indirect 0.7 mg/dL (0.0-1.0); Bilirubin,Total 0.9 mg/dL (0.3-1.0); C-Reactive Protein < 5 mg/L (Less than 10); Globulin 2.4 g/dL (2.4-3.5); Total Protein 6.2 g/dL (6.4-8.9)
[2019-01-07 23:14] LABS: ABG Base Excess 6 mEq/L (-2 to 3); ABG HCO3 31 mEq/L (21-27); ABG Oxygen Saturation 94 % (95-98); ABG PCO2 46 mmHg (35-45); ABG PH 7.43 pH Units (7.32-7.45); ABG PO2 69 mmHg (85-104); ABG TCO2 33 mEq/L (20-26)
[2019-01-07 23:17] LABS: Troponin I 0.04 ng/mL (< 0.04)
[2019-01-07] MEDS: 0.9 % Sodium Chloride 1,000 ML IVC SCH (23:49)
[2019-01-08] MEDS: Insulin LISPRO 300 UNITS/3 ML VIAL SQ SCH ×5 (00:12→23:19)
[2019-01-08] MEDS: 0.9 % Sodium Chloride 1,000 ML IVC SCH (03:53)
[2019-01-08 05:22] LABS: Basophils % 0.5 %; Eosinophils # 0.3 K/mcL (0.0-0.6); Eosinophils % 3.7 %; Hematocrit 38.4 % (37.5-50.1); Immature Granulocytes % 0.4 % (0-4); Lymphocytes # 2.5 K/mcL (0.6-4.6); Lymphocytes % 33.4 %; Mean Corpuscular HGB Conc 33.9 g/dL (31.6-35.5); Mean Corpuscular Hemoglobin 30.2 pg (28.0-33.3); Mean Corpuscular Volume 89.3 fL (83.0-100.0); Mean Platelet Volume 11.5 fL (9.4-12.4); Monocytes # 0.6 K/mcL (0.0-1.3); Monocytes % 7.9 %; Neutrophils # 4.1 K/mcL (1.6-8.9); Platelet Count 104 K/mcL (140-400); Red Cell Distribution Width 14.2 % (11.5-14.5); Segmented Neutrophils % 54.1 %; White Blood Count 7.6 K/mcL (4.3-11.1)
[2019-01-08 05:34] LABS: Alanine Aminotransferase 14 Units/L (7-52); Albumin 3.6 g/dL (3.5-5.7); Albumin/Globulin Ratio 1.7 (1.1-2.2); Alkaline Phosphatase 87 Units/L (34-104); Aspartate Amino Transferase 20 Units/L (13-39); BUN/Creatinine Ratio 13 (6-26); Bilirubin,Total 0.9 mg/dL (0.3-1.0); Blood Urea Nitrogen 17 mg/dL (8-23); Calcium 8.8 mg/dL (8.6-10.3); Carbon Dioxide 26 mEq/L (23-29); Chloride 105 mEq/L (98-107); Chol/HDL Ratio 3.4 (0-4.9); Cholesterol 91 mg/dL (< 200); Globulin 2.1 g/dL (2.4-3.5); Glucose 252 mg/dL (70-105); HDL Cholesterol 27 mg/dL (40-59); LDL Cholesterol,Calculated 26 mg/dL (0-99); Magnesium 1.8 mg/dL (1.6-2.6); Osmolality,Calculated 298 (280-300); Phosphorous 2.8 mg/dL (2.7-4.5); Potassium 3.7 mEq/L (3.5-5.1); Sodium 139 mEq/L (136-145); Total Protein 5.7 g/dL (6.4-8.9); Triglycerides 191 mg/dL (< 150); eGFR For African Americans > 60 (> 60); eGFR For Non-African Americans 51 (> 60)
[2019-01-08] MEDS: Aspirin 81 MG TAB.CHEW PO SCH (09:52)
[2019-01-08] MEDS ORDERED: Nitroglycerin 0.4 MG TAB.SUBL SL PRN (15:20)
[2019-01-08 16:54] LABS: Folate > 22.3 ng/mL (3.0-16.0); Vitamin B12 652 pg/mL (250-1100)
[2019-01-08] MEDS ORDERED: Aspirin Enteric Coated 81 MG Tablet PO SCH (18:00)
[2019-01-08] MEDS: Apixaban 5 MG TABLET PO SCH (21:20)
[2019-01-08] MEDS: Famotidine 20 MG TABLET PO SCH (21:20)
[2019-01-08] MEDS: Insulin DETEMIR 100 UNIT/ML X5UNITS SQ SCH (21:20)
[2019-01-09 02:26] LABS: Calcium 8.9 mg/dL (8.6-10.3); Potassium 3.4 mEq/L (3.5-5.1)
[2019-01-09 04:23] LABS: Protein/Creatinine Ratio,Urine 1.07 mg/mg (0.00-0.20)
[2019-01-09] MEDS: Insulin LISPRO 300 UNITS/3 ML VIAL SQ SCH ×3 (05:24→16:50)
[2019-01-09] MEDS: Aspirin 81 MG TAB.CHEW PO SCH (09:39)
[2019-01-09] MEDS: Insulin DETEMIR 100 UNIT/ML X5UNITS SQ SCH ×2 (09:39→20:01)
[2019-01-09] MEDS: Apixaban 5 MG TABLET PO SCH ×2 (09:40→20:00)
[2019-01-09] MEDS ORDERED: 0.9 % Sodium Chloride 1,000 ML IVC SCH (10:30)
[2019-01-09] MEDS: amLODIPine 5 MG TABLET PO SCH (11:35)
[2019-01-09] MEDS ORDERED: Acetaminophen 325 MG TABLET PO PRN (16:37)
[2019-01-09] MEDS ORDERED: cloNIDine HCl 0.1 MG TABLET PO ONE (19:39)
[2019-01-09] MEDS: Famotidine 20 MG TABLET PO SCH (20:01)
[2019-01-09] MEDS ORDERED: Insulin LISPRO 300 UNITS/3 ML VIAL SQ SCH (21:00)
[2019-01-10 01:30] LABS: Basophils # 0.1 K/mcL (0.0-0.2); Basophils % 0.8 %; Eosinophils # 0.5 K/mcL (0.0-0.6); Eosinophils % 6.7 %; Hematocrit 36.5 % (37.5-50.1); Hemoglobin 12.7 g/dL (12.9-16.9); Immature Granulocytes % 0.4 % (0-4); Lymphocytes # 2.7 K/mcL (0.6-4.6); Lymphocytes % 34.6 %; Mean Corpuscular HGB Conc 34.8 g/dL (31.6-35.5); Mean Corpuscular Hemoglobin 31.1 pg (28.0-33.3); Mean Corpuscular Volume 89.5 fL (83.0-100.0); Mean Platelet Volume 11.9 fL (9.4-12.4); Monocytes # 0.6 K/mcL (0.0-1.3); Monocytes % 8.4 %; Neutrophils # 3.8 K/mcL (1.6-8.9); Platelet Count 117 K/mcL (140-400); Red Blood Count 4.08 M/mcL (4.19-5.50); Red Cell Distribution Width 14.4 % (11.5-14.5); Segmented Neutrophils % 49.1 %; White Blood Count 7.7 K/mcL (4.3-11.1)
[2019-01-10 01:48] LABS: BUN/Creatinine Ratio 11 (6-26); Blood Urea Nitrogen 15 mg/dL (8-23); Calcium 8.9 mg/dL (8.6-10.3); Carbon Dioxide 30 mEq/L (23-29); Chloride 104 mEq/L (98-107); Glucose 80 mg/dL (70-105); Osmolality,Calculated 294 (280-300); Potassium 3.6 mEq/L (3.5-5.1); Sodium 142 mEq/L (136-145); eGFR For African Americans > 60 (> 60); eGFR For Non-African Americans 52 (> 60)
[2019-01-10 07:38] VITALS: BP 153/83
[2019-01-10] MEDS: Insulin LISPRO 300 UNITS/3 ML VIAL SQ SCH (08:03)
[2019-01-10] MEDS ORDERED: cloNIDine HCl 0.1 MG TABLET PO SCH (09:00)
[2019-01-10] MEDS: Aspirin 81 MG TAB.CHEW PO SCH (09:40)
[2019-01-10] MEDS: Apixaban 5 MG TABLET PO SCH (09:40)
[2019-01-10] MEDS: Insulin DETEMIR 100 UNIT/ML X5UNITS SQ SCH (09:41)
[2019-01-10] MEDS: amLODIPine 5 MG TABLET PO SCH (09:41)
== END 2019-01-10 11:55 | disposition home or self-care (01) | DRG 917 ==
LOC: EMEROOARM 18:12 → 3BNU 18:12
PROVIDERS: ADMIT Family Medicine; ATTEND Family Medicine

== ENCOUNTER 2020-05-22 17:27 | Inpatient (IN) ==
[2020-05-22 19:03] LABS: Bilirubin,Urine Negative (Negative); Blood,Urine Small (Negative); Clarity,Urine Clear (Clear); Color,Urine Colorless (Yellow); Glucose,Urine (UA) 150 mg/dL (Normal); Ketones,Urine Negative (Negative); Leukocyte Esterase,Urine Negative (Negative); Nitrite,Urine Negative (Negative); PH,Urine 6.5 pH Units (5.0-8.0); Protein,Urine >=300 mg/dL (Neg-Trace); RBC,Urine 0-3 per hpf (0-3); Specific Gravity,Urine 1.012 (1.010-1.025); Urobilinogen,Urine Normal (Normal); WBC,Urine 0-3 per hpf (0-3)
[2020-05-22 19:12] LABS: Hematocrit 41.4 % (37.5-50.1); White Blood Count 8.8 K/mcL (4.3-11.1)
[2020-05-22 19:14] LABS: Basophils # 0.1 K/mcL (0.0-0.2); Basophils % 0.7 %; Eosinophils # 0.6 K/mcL (0.0-0.6); Eosinophils % 7.3 %; Hemoglobin 13.9 g/dL (12.9-16.9); Immature Granulocytes % 0.5 % (0-4); Immature Platelets 5.9 % (1.1-6.1); Lymphocytes # 2.5 K/mcL (0.6-4.6); Lymphocytes % 28.1 %; Mean Corpuscular HGB Conc 33.6 g/dL (31.6-35.5); Mean Corpuscular Hemoglobin 30.5 pg (28.0-33.3); Mean Corpuscular Volume 90.8 fL (83.0-100.0); Mean Platelet Volume 10.7 fL (9.4-12.4); Monocytes # 0.7 K/mcL (0.0-1.3); Neutrophils # 4.9 K/mcL (1.6-8.9); Platelet Count 134 K/mcL (140-400); Red Blood Count 4.56 M/mcL (4.19-5.50); Red Cell Distribution Width 14.2 % (11.5-14.5); Segmented Neutrophils % 55.4 %
[2020-05-22 19:26] LABS: Alanine Aminotransferase 11 Units/L (7-52); Albumin 3.7 g/dL (3.5-5.7); Albumin/Globulin Ratio 1.4 (1.1-2.2); Alkaline Phosphatase 95 Units/L (34-104); Aspartate Amino Transferase 16 Units/L (13-39); BUN/Creatinine Ratio 15 (6-26); Bilirubin,Total 0.8 mg/dL (0.3-1.0); Blood Urea Nitrogen 21 mg/dL (8-23); Calcium 9.6 mg/dL (8.6-10.3); Carbon Dioxide 29 mEq/L (23-29); Chloride 103 mEq/L (98-107); Ethanol < 10 mg/dL (Less than 10); Globulin 2.6 g/dL (2.4-3.5); Glucose 200 mg/dL (70-105); Osmolality,Calculated 297 (280-300); Potassium 3.8 mEq/L (3.5-5.1); Sodium 139 mEq/L (136-145); Total Protein 6.3 g/dL (6.4-8.9); Troponin I 0.03 ng/mL (< 0.04); eGFR For African Americans 58 (> 60); eGFR For Non-African Americans 48 (> 60)
[2020-05-22] MEDS ORDERED: Naloxone 0.4 MG/ML INJ IVP PRN (21:25)
[2020-05-22] MEDS ORDERED: Ondansetron 4 MG/2 ML VIAL IVP PRN (21:25)
[2020-05-23] MEDS ORDERED: Nitroglycerin 0.4 MG TAB.SUBL SL PRN (03:26)
[2020-05-23] MEDS ORDERED: Mirtazapine 15 MG TABLET PO SCH (03:30)
[2020-05-23] MEDS ORDERED: risperiDONE 1 MG TABLET PO SCH (03:30)
[2020-05-23] MEDS: Aspirin Enteric Coated 81 MG Tablet PO SCH ×2 (03:43→16:19)
[2020-05-23] MEDS ORDERED: Furosemide 40 MG/4 ML VIAL IVP ONE (05:00)
[2020-05-23 07:27] LABS: Hematocrit 44.5 % (37.5-50.1); Hemoglobin 14.8 g/dL (12.9-16.9); Mean Corpuscular HGB Conc 33.3 g/dL (31.6-35.5); Mean Corpuscular Hemoglobin 30.5 pg (28.0-33.3); Mean Corpuscular Volume 91.8 fL (83.0-100.0); Mean Platelet Volume 11.4 fL (9.4-12.4); Platelet Count 142 K/mcL (140-400); Red Blood Count 4.85 M/mcL (4.19-5.50); Red Cell Distribution Width 14.3 % (11.5-14.5); White Blood Count 7.3 K/mcL (4.3-11.1)
[2020-05-23 07:32] LABS: INR 1.1; Prothrombin Time 12.9 Seconds (9.4-12.1)
[2020-05-23 07:34] LABS: Activated Partial Thrombo Time 27.7 Seconds (26.0-36.0)
[2020-05-23 07:48] LABS: Calcium 9.9 mg/dL (8.6-10.3); Potassium 3.2 mEq/L (3.5-5.1)
[2020-05-23 07:52] LABS: Troponin I 0.04 ng/mL (< 0.04)
[2020-05-23] MEDS: Baclofen 10 MG TABLET PO SCH ×2 (08:17→16:19)
[2020-05-23] MEDS: allopurinoL 300 MG TABLET PO SCH (08:18)
[2020-05-23] MEDS: amLODIPine 5 MG TABLET PO SCH (08:18)
[2020-05-23] MEDS: Metoprolol 100 MG TABLET PO SCH ×2 (08:18→20:45)
[2020-05-23] MEDS ORDERED: lisinopriL 20 MG TABLET PO SCH (09:00)
[2020-05-23] MEDS ORDERED: Furosemide 20 MG TABLET PO SCH (09:00)
[2020-05-23] MEDS ORDERED: Acetaminophen 325 MG TABLET PO ONE (09:07)
[2020-05-23] MEDS: Insulin DETEMIR 100 UNIT/ML X5UNITS SUBQ SCH ×2 (09:26→20:46)
[2020-05-23] MEDS ORDERED: Dextrose Gel 15 GM/37.5 ML TUBE PO PRN ×2 (11:12)
[2020-05-23] MEDS ORDERED: *HR* Dextrose 50 % in Water (Vial) 50 ML VIAL IVP PRN (11:12)
[2020-05-23] MEDS ORDERED: D5% in Water 1,000 ML IVC PRN (11:12)
[2020-05-23] MEDS: Apixaban 5 MG TABLET PO SCH ×2 (12:57→20:46)
[2020-05-23] MEDS: Insulin LISPRO 300 UNITS/3 ML VIAL SUBQ SCH ×3 (12:59→20:46)
[2020-05-23 13:23] LABS: Magnesium 1.8 mg/dL (1.6-2.6)
[2020-05-23 13:34] LABS: Thyroid Stimulating Hormone 3.227 mcIU/mL (0.340-5.600)
[2020-05-23 17:07] LABS: Amphetamine Screen,Urine Negative ng/mL (Cutoff=1000); Barbiturate Screen,Urine Negative ng/mL (Cutoff=200); Benzodiazepines Screen,Urine Negative ng/mL (Cutoff=200); Cannabinoid Screen,Urine Negative ng/mL (Cutoff = 50); Cocaine Screen,Urine Negative ng/mL (Cutoff= 300); Opiate Screen,Urine Negative ng/mL (Cutoff=300); Phencyclidine Screen,Urine Negative ng/mL (Cutoff=25)
[2020-05-24 05:34] LABS: Calcium 9.1 mg/dL (8.6-10.3); Magnesium 1.8 mg/dL (1.6-2.6); Phosphorous 4.1 mg/dL (2.7-4.5); Potassium 3.8 mEq/L (3.5-5.1)
[2020-05-24 05:59] LABS: Folate 17.4 ng/mL (3.0-16.0)
[2020-05-24] MEDS ORDERED: 0.9 % Sodium Chloride 1,000 ML IVC SCH (08:45)
[2020-05-24] MEDS: Insulin LISPRO 300 UNITS/3 ML VIAL SUBQ SCH ×4 (10:08→20:35)
[2020-05-24] MEDS: Baclofen 10 MG TABLET PO SCH (10:12)
[2020-05-24] MEDS: Thiamine (B-1) 100 MG TABLET PO SCH (10:13)
[2020-05-24] MEDS: amLODIPine 5 MG TABLET PO SCH (10:13)
[2020-05-24] MEDS: Metoprolol 100 MG TABLET PO SCH ×2 (10:13→20:24)
[2020-05-24] MEDS: allopurinoL 300 MG TABLET PO SCH (10:13)
[2020-05-24] MEDS: Apixaban 5 MG TABLET PO SCH ×2 (10:14→20:24)
[2020-05-24] MEDS: Insulin DETEMIR 100 UNIT/ML X5UNITS SUBQ SCH (10:19)
[2020-05-24] MEDS: Aspirin Enteric Coated 81 MG Tablet PO SCH (17:45)
[2020-05-24] MEDS: risperiDONE 0.25 MG TABLET PO SCH (20:24)
[2020-05-25] MEDS ORDERED: Haloperidol Lactate 5 MG/ML VIAL IM ONE ×2 (00:58→01:15)
[2020-05-25] MEDS: Insulin LISPRO 300 UNITS/3 ML VIAL SUBQ SCH ×4 (09:37→21:58)
[2020-05-25] MEDS: Apixaban 5 MG TABLET PO SCH ×2 (09:45→21:58)
[2020-05-25] MEDS: Metoprolol 100 MG TABLET PO SCH ×2 (09:45→21:58)
[2020-05-25] MEDS: amLODIPine 5 MG TABLET PO SCH (09:45)
[2020-05-25] MEDS: allopurinoL 300 MG TABLET PO SCH (09:45)
[2020-05-25] MEDS: Thiamine (B-1) 100 MG TABLET PO SCH (09:45)
[2020-05-25] MEDS: Insulin DETEMIR 100 UNIT/ML X5UNITS SUBQ SCH (09:46)
[2020-05-25 10:27] LABS: Basophils % 0.6 %; Eosinophils # 0.4 K/mcL (0.0-0.6); Eosinophils % 6.2 %; Hematocrit 41.6 % (37.5-50.1); Hemoglobin 13.7 g/dL (12.9-16.9); Immature Granulocytes % 0.3 % (0-4); Lymphocytes # 2.1 K/mcL (0.6-4.6); Lymphocytes % 31.6 %; Mean Corpuscular HGB Conc 32.9 g/dL (31.6-35.5); Mean Corpuscular Volume 94.1 fL (83.0-100.0); Mean Platelet Volume 11.1 fL (9.4-12.4); Monocytes # 0.5 K/mcL (0.0-1.3); Monocytes % 7.4 %; Neutrophils # 3.6 K/mcL (1.6-8.9); Platelet Count 145 K/mcL (140-400); Red Blood Count 4.42 M/mcL (4.19-5.50); Red Cell Distribution Width 14.6 % (11.5-14.5); Segmented Neutrophils % 53.9 %; White Blood Count 6.6 K/mcL (4.3-11.1)
[2020-05-25 10:48] LABS: Albumin 3.7 g/dL (3.5-5.7); Albumin/Globulin Ratio 1.5 (1.1-2.2); Calcium 9.3 mg/dL (8.6-10.3); Globulin 2.5 g/dL (2.4-3.5); Magnesium 1.9 mg/dL (1.6-2.6); Phosphorous 3.4 mg/dL (2.7-4.5); Potassium 3.9 mEq/L (3.5-5.1); Total Protein 6.2 g/dL (6.4-8.9)
[2020-05-25 11:08] LABS: Troponin I 0.05 ng/mL (< 0.04)
[2020-05-25] MEDS ORDERED: Melatonin 3 MG TABLET PO PRN (17:47)
[2020-05-25] MEDS: Aspirin Enteric Coated 81 MG Tablet PO SCH (18:00)
[2020-05-25] MEDS: risperiDONE 0.25 MG TABLET PO SCH (21:58)
[2020-05-26 06:29] LABS: Hematocrit 41.9 % (37.5-50.1); Hemoglobin 13.8 g/dL (12.9-16.9); Mean Corpuscular HGB Conc 32.9 g/dL (31.6-35.5); Mean Corpuscular Hemoglobin 30.7 pg (28.0-33.3); Mean Corpuscular Volume 93.3 fL (83.0-100.0); Mean Platelet Volume 11.1 fL (9.4-12.4); Platelet Count 146 K/mcL (140-400); Red Blood Count 4.49 M/mcL (4.19-5.50); Red Cell Distribution Width 14.4 % (11.5-14.5); White Blood Count 7.1 K/mcL (4.3-11.1)
[2020-05-26 06:49] LABS: Calcium 9.6 mg/dL (8.6-10.3); Phosphorous 3.7 mg/dL (2.7-4.5)
[2020-05-26] MEDS: Insulin LISPRO 300 UNITS/3 ML VIAL SUBQ SCH ×3 (07:50→16:36)
[2020-05-26] MEDS: Thiamine (B-1) 100 MG TABLET PO SCH (08:05)
[2020-05-26] MEDS: allopurinoL 300 MG TABLET PO SCH (08:06)
[2020-05-26] MEDS: Metoprolol 100 MG TABLET PO SCH (08:06)
[2020-05-26] MEDS: Insulin DETEMIR 100 UNIT/ML X5UNITS SUBQ SCH (08:07)
[2020-05-26] MEDS: Apixaban 5 MG TABLET PO SCH (08:07)
[2020-05-26] MEDS ORDERED: Multivit/Ca/Min/Fe/FA 1 TAB TABLET PO SCH (09:00)
[2020-05-26] MEDS ORDERED: NIFEdipine XL (24 HR) 60 MG TAB.ER.24 PO SCH (09:00)
[2020-05-26 11:00] LABS: Estimated Average Glucose 232 mg/dl; Hemoglobin A1C 9.7 %
[2020-05-26 14:11] VITALS: BP 131/83
[2020-05-26 15:03] LABS: Adenovirus Not Detected (Not Detect); Bordetella Pertussis Not Detected (Not Detect); Chlamydophila pneumoniae Not Detected (Not Detect); Coronavirus 229E Not Detected (Not Detect); Coronavirus HKU1 Not Detected (Not Detect); Coronavirus NL63 Not Detected (Not Detect); Coronavirus OC43 Not Detected (Not Detect); Human Metapneumovirus Not Detected (Not Detect); Human Rhinovirus/Enterovirus Not Detected (Not Detect); Influenza A Subtype 2009 H1 Not Detected (Not Detect); Influenza B Not Detected (Not Detect); Mycoplasma pneumoniae Not Detected (Not Detect); Parainfluenza Virus 1 Not Detected (Not Detect); Parainfluenza Virus 2 Not Detected (Not Detect); Parainfluenza Virus 3 Not Detected (Not Detect); Parainfluenza Virus 4 Not Detected (Not Detect); Respiratory Syncytial Virus Not Detected (Not Detect); SARS-CoV-2 Not Detected (Not Detect)
== END 2020-05-26 17:52 | disposition critical access hospital (66) | DRG 91 ==
LOC: EMEROOARM 17:27 → 3ANU 17:27 → SUATTDRO 21:44 → 3ANU 22:34 → SUATTDRO 05-24 15:25 → 3ANU 05-24 20:08
PROVIDERS: ADMIT Student in an Organized Health Care Education/Training Program; ATTEND Internal Medicine

== ENCOUNTER 2020-06-10 11:09 | Inpatient (IN) ==
[2020-06-10 11:42] LABS: Basophils % 0.5 %; Eosinophils % 3.1 %; Immature Granulocytes % 0.1 % (0-4)
[2020-06-10 11:44] LABS: Eosinophils # 0.2 K/mcL (0.0-0.6); Hematocrit 38.2 % (37.5-50.1); Hemoglobin 12.4 g/dL (12.9-16.9); Immature Platelets 3.8 % (1.1-6.1); Lymphocytes # 1.5 K/mcL (0.6-4.6); Lymphocytes % 19.8 %; Mean Corpuscular HGB Conc 32.5 g/dL (31.6-35.5); Mean Corpuscular Hemoglobin 30.5 pg (28.0-33.3); Mean Corpuscular Volume 94.1 fL (83.0-100.0); Mean Platelet Volume 10.8 fL (9.4-12.4); Monocytes # 0.6 K/mcL (0.0-1.3); Monocytes % 8.2 %; Neutrophils # 5.1 K/mcL (1.6-8.9); Platelet Count 120 K/mcL (140-400); Red Blood Count 4.06 M/mcL (4.19-5.50); Segmented Neutrophils % 68.3 %; White Blood Count 7.4 K/mcL (4.3-11.1)
[2020-06-10 12:00] LABS: Bilirubin,Urine Negative (Negative); Blood,Urine Small (Negative); Clarity,Urine Clear (Clear); Color,Urine Light-Yellow (Yellow); Glucose,Urine (UA) Normal (Normal); Ketones,Urine Negative (Negative); Leukocyte Esterase,Urine Negative (Negative); Mucus,Urine Few per lpf (None-Few); Nitrite,Urine Negative (Negative); PH,Urine 6.5 pH Units (5.0-8.0); Protein,Urine 200 mg/dL (Neg-Trace); RBC,Urine 0-3 per hpf (0-3); Specific Gravity,Urine 1.015 (1.010-1.025); Urobilinogen,Urine Normal (Normal); WBC,Urine 0-3 per hpf (0-3)
[2020-06-10 12:08] LABS: Troponin I 0.04 ng/mL (< 0.04)
[2020-06-10 12:12] LABS: Amphetamine Screen,Urine Negative ng/mL (Cutoff=1000); Barbiturate Screen,Urine Negative ng/mL (Cutoff=200); Benzodiazepines Screen,Urine Negative ng/mL (Cutoff=200); Cannabinoid Screen,Urine Positive ng/mL (Cutoff = 50); Cocaine Screen,Urine Negative ng/mL (Cutoff= 300); Opiate Screen,Urine Negative ng/mL (Cutoff=300); Phencyclidine Screen,Urine Negative ng/mL (Cutoff=25)
[2020-06-10 12:28] LABS: Alanine Aminotransferase 19 Units/L (7-52); Albumin 3.8 g/dL (3.5-5.7); Albumin/Globulin Ratio 1.6 (1.1-2.2); Alkaline Phosphatase 70 Units/L (34-104); Aspartate Amino Transferase 23 Units/L (13-39); BUN/Creatinine Ratio 13 (6-26); Bilirubin,Direct 0.2 mg/dL (0.0-0.2); Bilirubin,Indirect 0.9 mg/dL (0.0-1.0); Bilirubin,Total 1.1 mg/dL (0.3-1.0); Blood Urea Nitrogen 19 mg/dL (8-23); Calcium 9.4 mg/dL (8.6-10.3); Carbon Dioxide 26 mEq/L (23-29); Chloride 105 mEq/L (98-107); Creatine Kinase 99 Units/L (30-223); Digoxin < 0.3 ng/mL (0.8-2.0); Ethanol < 10 mg/dL (Less than 10); Globulin 2.4 g/dL (2.4-3.5); Glucose 158 mg/dL (70-105); Osmolality,Calculated 298 (280-300); Potassium 3.6 mEq/L (3.5-5.1); Sodium 141 mEq/L (136-145); Thyroid Stimulating Hormone 3.713 mcIU/mL (0.340-5.600); Total Protein 6.2 g/dL (6.4-8.9); eGFR For African Americans 56 (> 60); eGFR For Non-African Americans 46 (> 60)
[2020-06-10] MEDS ORDERED: Furosemide 40 MG/4 ML VIAL IVP ONE (12:42)
[2020-06-10] MEDS ORDERED: Ondansetron 4 MG/2 ML VIAL IVP PRN (13:24)
[2020-06-10] MEDS ORDERED: Naloxone 0.4 MG/ML INJ IVP PRN (13:24)
[2020-06-10 16:08] LABS: VBG HCO3 29 mEq/L (21-27); VBG PCO2 50 mmHg (41-51); VBG PH 7.37 pH Units (7.32-7.42); VBG PO2 72 mmHg (25-50)
[2020-06-10] MEDS: Metoprolol 100 MG TABLET PO SCH (17:30)
[2020-06-10] MEDS ORDERED: Nitroglycerin 0.4 MG TAB.SUBL SL PRN (18:26)
[2020-06-10] MEDS: Apixaban 5 MG TABLET PO SCH (20:23)
[2020-06-10] MEDS: traZODone 50 MG TABLET PO SCH (20:23)
[2020-06-11 03:07] LABS: Immature Granulocytes % 0.2 % (0-4)
[2020-06-11 03:09] LABS: Basophils % 0.4 %; Eosinophils # 0.2 K/mcL (0.0-0.6); Eosinophils % 2.1 %; Hematocrit 41.3 % (37.5-50.1); Hemoglobin 13.6 g/dL (12.9-16.9); Immature Platelets 4.2 % (1.1-6.1); Lymphocytes % 23.4 %; Mean Corpuscular HGB Conc 32.9 g/dL (31.6-35.5); Mean Corpuscular Hemoglobin 30.4 pg (28.0-33.3); Mean Corpuscular Volume 92.2 fL (83.0-100.0); Mean Platelet Volume 10.7 fL (9.4-12.4); Monocytes # 0.8 K/mcL (0.0-1.3); Monocytes % 9.3 %; Neutrophils # 5.5 K/mcL (1.6-8.9); Platelet Count 125 K/mcL (140-400); Red Blood Count 4.48 M/mcL (4.19-5.50); Red Cell Distribution Width 15.2 % (11.5-14.5); Segmented Neutrophils % 64.6 %; White Blood Count 8.5 K/mcL (4.3-11.1)
[2020-06-11 03:21] LABS: Calcium 9.6 mg/dL (8.6-10.3); Magnesium 1.6 mg/dL (1.6-2.6); Phosphorous 3.7 mg/dL (2.7-4.5); Potassium 3.4 mEq/L (3.5-5.1)
[2020-06-11] MEDS: Cholecalciferol (D-3) 1,000 UNIT (25MCG) TABLET PO SCH (10:22)
[2020-06-11] MEDS: Metoprolol 100 MG TABLET PO SCH ×2 (10:22→20:41)
[2020-06-11] MEDS: *HR* Digoxin 0.125 MG TABLET PO SCH (10:22)
[2020-06-11] MEDS: Apixaban 5 MG TABLET PO SCH ×2 (10:22→20:40)
[2020-06-11] MEDS: allopurinoL 300 MG TABLET PO SCH (10:22)
[2020-06-11] MEDS: Aspirin Enteric Coated 81 MG Tablet PO SCH (17:08)
[2020-06-11] MEDS: traZODone 50 MG TABLET PO SCH (20:40)
[2020-06-12 02:33] LABS: Basophils % 0.6 %; Eosinophils # 0.3 K/mcL (0.0-0.6); Eosinophils % 4.2 %; Hematocrit 37.7 % (37.5-50.1); Hemoglobin 12.3 g/dL (12.9-16.9); Immature Granulocytes % 0.3 % (0-4); Lymphocytes # 1.8 K/mcL (0.6-4.6); Lymphocytes % 25.5 %; Mean Corpuscular HGB Conc 32.6 g/dL (31.6-35.5); Mean Corpuscular Hemoglobin 30.6 pg (28.0-33.3); Mean Corpuscular Volume 93.8 fL (83.0-100.0); Mean Platelet Volume 10.9 fL (9.4-12.4); Monocytes # 0.7 K/mcL (0.0-1.3); Monocytes % 10.6 %; Neutrophils # 4.1 K/mcL (1.6-8.9); Platelet Count 110 K/mcL (140-400); Red Blood Count 4.02 M/mcL (4.19-5.50); Red Cell Distribution Width 15.4 % (11.5-14.5); Segmented Neutrophils % 58.8 %
[2020-06-12 02:52] LABS: Calcium 8.7 mg/dL (8.6-10.3); Potassium 3.4 mEq/L (3.5-5.1)
[2020-06-12] MEDS: allopurinoL 300 MG TABLET PO SCH (09:09)
[2020-06-12] MEDS: Cholecalciferol (D-3) 1,000 UNIT (25MCG) TABLET PO SCH (09:10)
[2020-06-12] MEDS: *HR* Digoxin 0.125 MG TABLET PO SCH (09:10)
[2020-06-12] MEDS: Metoprolol 100 MG TABLET PO SCH ×2 (09:10→19:59)
[2020-06-12] MEDS: Apixaban 5 MG TABLET PO SCH ×2 (09:10→19:59)
[2020-06-12] MEDS ORDERED: *HR* Dextrose 50 % in Water (Vial) 50 ML VIAL IVP PRN (10:53)
[2020-06-12] MEDS ORDERED: D5% in Water 1,000 ML IVC PRN (10:53)
[2020-06-12] MEDS ORDERED: Dextrose Gel 15 GM/37.5 ML TUBE PO PRN ×2 (10:53)
[2020-06-12] MEDS: Insulin LISPRO 300 UNITS/3 ML VIAL SUBQ SCH ×2 (11:45→16:36)
[2020-06-12] MEDS: amLODIPine 5 MG TABLET PO SCH (11:46)
[2020-06-12] MEDS: Aspirin Enteric Coated 81 MG Tablet PO SCH (16:37)
[2020-06-12] MEDS: traZODone 50 MG TABLET PO SCH (19:59)
[2020-06-12] MEDS ORDERED: Acetaminophen IV 1,000 MG/100 ML BAG IVPB ONE (23:22)
[2020-06-12] MEDS: Melatonin 3 MG TABLET PO PRN (23:46)
[2020-06-13 02:48] LABS: Immature Granulocytes % 0.3 % (0-4); Red Blood Count 3.96 M/mcL (4.19-5.50); Segmented Neutrophils % 60.1 %
[2020-06-13 02:50] LABS: Basophils % 0.6 %; Eosinophils # 0.5 K/mcL (0.0-0.6); Eosinophils % 6.7 %; Hematocrit 36.9 % (37.5-50.1); Immature Platelets 3.5 % (1.1-6.1); Lymphocytes # 1.7 K/mcL (0.6-4.6); Lymphocytes % 22.9 %; Mean Corpuscular HGB Conc 32.5 g/dL (31.6-35.5); Mean Corpuscular Hemoglobin 30.3 pg (28.0-33.3); Mean Corpuscular Volume 93.2 fL (83.0-100.0); Mean Platelet Volume 10.6 fL (9.4-12.4); Monocytes # 0.7 K/mcL (0.0-1.3); Monocytes % 9.4 %; Neutrophils # 4.3 K/mcL (1.6-8.9); Platelet Count 106 K/mcL (140-400); Red Cell Distribution Width 15.2 % (11.5-14.5); White Blood Count 7.2 K/mcL (4.3-11.1)
[2020-06-13 03:11] LABS: Calcium 8.5 mg/dL (8.6-10.3); Potassium 3.6 mEq/L (3.5-5.1)
[2020-06-13] MEDS: Metoprolol 100 MG TABLET PO SCH ×2 (08:45→21:42)
[2020-06-13] MEDS: Cholecalciferol (D-3) 1,000 UNIT (25MCG) TABLET PO SCH (08:45)
[2020-06-13] MEDS: Insulin LISPRO 300 UNITS/3 ML VIAL SUBQ SCH ×3 (08:45→15:55)
[2020-06-13] MEDS: amLODIPine 5 MG TABLET PO SCH (08:46)
[2020-06-13] MEDS: Apixaban 5 MG TABLET PO SCH ×2 (08:46→21:42)
[2020-06-13] MEDS: *HR* Digoxin 0.125 MG TABLET PO SCH (08:46)
[2020-06-13] MEDS: allopurinoL 300 MG TABLET PO SCH (08:46)
[2020-06-13] MEDS ORDERED: Acetaminophen 325 MG TABLET PO PRN (10:30)
[2020-06-13] MEDS ORDERED: *HR* OxyCODONE/APAP 10/325 TABLET PO PRN (10:31)
[2020-06-13] MEDS: Ringers Solution, Lactated 1,000 ML IVC SCH ×2 (11:53→21:42)
[2020-06-13] MEDS: Aspirin Enteric Coated 81 MG Tablet PO SCH (15:55)
[2020-06-13] MEDS ORDERED: Insulin DETEMIR 100 UNIT/ML X5UNITS SUBQ SCH (21:00)
[2020-06-13] MEDS: traZODone 50 MG TABLET PO SCH (21:43)
[2020-06-13] MEDS: Haloperidol Lactate 5 MG/ML VIAL IVP PRN (21:43)
[2020-06-14] MEDS: Melatonin 3 MG TABLET PO PRN ×2 (00:23→20:34)
[2020-06-14 01:16] LABS: Basophils % 0.4 %; Eosinophils # 0.5 K/mcL (0.0-0.6); Hematocrit 35.8 % (37.5-50.1); Hemoglobin 11.9 g/dL (12.9-16.9); Immature Granulocytes % 0.3 % (0-4); Lymphocytes # 1.6 K/mcL (0.6-4.6); Lymphocytes % 23.6 %; Mean Corpuscular HGB Conc 33.2 g/dL (31.6-35.5); Mean Corpuscular Hemoglobin 31.1 pg (28.0-33.3); Mean Corpuscular Volume 93.5 fL (83.0-100.0); Mean Platelet Volume 10.6 fL (9.4-12.4); Monocytes # 0.6 K/mcL (0.0-1.3); Monocytes % 9.1 %; Platelet Count 105 K/mcL (140-400); Red Blood Count 3.83 M/mcL (4.19-5.50); Red Cell Distribution Width 15.2 % (11.5-14.5); Segmented Neutrophils % 59.6 %; White Blood Count 6.7 K/mcL (4.3-11.1)
[2020-06-14 01:36] LABS: BUN/Creatinine Ratio 15 (6-26); Blood Urea Nitrogen 20 mg/dL (8-23); Calcium 8.6 mg/dL (8.6-10.3); Carbon Dioxide 27 mEq/L (23-29); Chloride 107 mEq/L (98-107); Glucose 211 mg/dL (70-105); Osmolality,Calculated 299 (280-300); Potassium 3.7 mEq/L (3.5-5.1); Sodium 140 mEq/L (136-145); eGFR For African Americans > 60 (> 60); eGFR For Non-African Americans 52 (> 60)
[2020-06-14] MEDS: Ringers Solution, Lactated 1,000 ML IVC SCH ×2 (03:36→10:29)
[2020-06-14] MEDS: Haloperidol Lactate 5 MG/ML VIAL IVP PRN ×3 (03:43→16:28)
[2020-06-14] MEDS: amLODIPine 5 MG TABLET PO SCH (07:33)
[2020-06-14] MEDS: allopurinoL 300 MG TABLET PO SCH (07:33)
[2020-06-14] MEDS: *HR* OxyCODONE/APAP 5/325 TABLET PO PRN (07:33)
[2020-06-14] MEDS: Cholecalciferol (D-3) 1,000 UNIT (25MCG) TABLET PO SCH (07:33)
[2020-06-14] MEDS: *HR* Digoxin 0.125 MG TABLET PO SCH (07:33)
[2020-06-14] MEDS: Metoprolol 100 MG TABLET PO SCH ×2 (07:33→20:32)
[2020-06-14] MEDS: Apixaban 5 MG TABLET PO SCH ×2 (07:33→20:34)
[2020-06-14] MEDS: Insulin LISPRO 300 UNITS/3 ML VIAL SUBQ SCH ×3 (07:35→16:16)
[2020-06-14] MEDS ORDERED: amLODIPine 5 MG TABLET PO ONE (11:54)
[2020-06-14] MEDS: lisinopriL 10 MG TABLET PO SCH (14:26)
[2020-06-14] MEDS: Aspirin Enteric Coated 81 MG Tablet PO SCH (16:28)
[2020-06-14] MEDS: Mirtazapine 15 MG TABLET PO SCH (20:33)
[2020-06-14] MEDS: ARIPiprazole 5 MG TABLET PO SCH (20:33)
[2020-06-14] MEDS: Insulin DETEMIR 100 UNIT/ML X5UNITS SUBQ SCH (20:35)
[2020-06-15 02:08] LABS: BUN/Creatinine Ratio 12 (6-26); Blood Urea Nitrogen 15 mg/dL (8-23); Calcium 8.9 mg/dL (8.6-10.3); Carbon Dioxide 26 mEq/L (23-29); Chloride 107 mEq/L (98-107); Glucose 184 mg/dL (70-105); Osmolality,Calculated 298 (280-300); Potassium 3.7 mEq/L (3.5-5.1); Sodium 141 mEq/L (136-145); eGFR For African Americans > 60 (> 60); eGFR For Non-African Americans 55 (> 60)
[2020-06-15] MEDS: Cholecalciferol (D-3) 1,000 UNIT (25MCG) TABLET PO SCH (07:39)
[2020-06-15] MEDS: Metoprolol 100 MG TABLET PO SCH ×2 (07:40→19:58)
[2020-06-15] MEDS: allopurinoL 300 MG TABLET PO SCH (07:40)
[2020-06-15] MEDS: hydrALAZINE 25 MG TABLET PO SCH ×3 (07:41→23:51)
[2020-06-15] MEDS: Apixaban 5 MG TABLET PO SCH ×2 (07:42→19:58)
[2020-06-15] MEDS: lisinopriL 10 MG TABLET PO SCH (07:42)
[2020-06-15] MEDS: amLODIPine 5 MG TABLET PO SCH (07:42)
[2020-06-15] MEDS: Insulin LISPRO 300 UNITS/3 ML VIAL SUBQ SCH ×3 (08:03→15:59)
[2020-06-15] MEDS: *HR* OxyCODONE/APAP 5/325 TABLET PO PRN ×2 (14:10→20:00)
[2020-06-15] MEDS: Haloperidol Lactate 5 MG/ML VIAL IVP PRN (14:10)
[2020-06-15] MEDS ORDERED: D5% in Water 1,000 ML IVC PRN (15:35)
[2020-06-15] MEDS ORDERED: Dextrose Gel 15 GM/37.5 ML TUBE PO PRN ×2 (15:35)
[2020-06-15] MEDS ORDERED: *HR* Dextrose 50 % in Water (Vial) 50 ML VIAL IVP PRN (15:35)
[2020-06-15] MEDS: Furosemide 20 MG TABLET PO SCH (15:59)
[2020-06-15] MEDS: Aspirin Enteric Coated 81 MG Tablet PO SCH (15:59)
[2020-06-15] MEDS ORDERED: Insulin LISPRO 300 UNITS/3 ML VIAL SUBQ SCH ×2 (16:30→21:00)
[2020-06-15 16:40] LABS: Estimated Average Glucose 189 mg/dl; Hemoglobin A1C 8.2 %
[2020-06-15 17:46] LABS: Adenovirus Not Detected (Not Detect); Bordetella Pertussis Not Detected (Not Detect); Chlamydophila pneumoniae Not Detected (Not Detect); Coronavirus 229E Not Detected (Not Detect); Coronavirus HKU1 Not Detected (Not Detect); Coronavirus NL63 Not Detected (Not Detect); Coronavirus OC43 Not Detected (Not Detect); Human Metapneumovirus Not Detected (Not Detect); Human Rhinovirus/Enterovirus Not Detected (Not Detect); Influenza A Subtype 2009 H1 Not Detected (Not Detect); Influenza B Not Detected (Not Detect); Mycoplasma pneumoniae Not Detected (Not Detect); Parainfluenza Virus 1 Not Detected (Not Detect); Parainfluenza Virus 2 Not Detected (Not Detect); Parainfluenza Virus 3 Not Detected (Not Detect); Parainfluenza Virus 4 Not Detected (Not Detect); Respiratory Syncytial Virus Not Detected (Not Detect); SARS-CoV-2 Not Detected (Not Detect)
[2020-06-15] MEDS: ARIPiprazole 5 MG TABLET PO SCH (19:57)
[2020-06-15] MEDS: Mirtazapine 15 MG TABLET PO SCH (19:58)
[2020-06-15] MEDS: Insulin DETEMIR 100 UNIT/ML X5UNITS SUBQ SCH (20:00)
[2020-06-16] MEDS: *HR* OxyCODONE/APAP 5/325 TABLET PO PRN (01:56)
[2020-06-16 03:00] LABS: Mean Corpuscular Volume 93.8 fL (83.0-100.0); Mean Platelet Volume 10.9 fL (9.4-12.4); Monocytes % 9.7 %
[2020-06-16 03:02] LABS: Basophils % 0.4 %; Eosinophils # 0.4 K/mcL (0.0-0.6); Eosinophils % 4.9 %; Hematocrit 36.2 % (37.5-50.1); Hemoglobin 12.1 g/dL (12.9-16.9); Immature Granulocytes % 0.4 % (0-4); Immature Platelets 2.9 % (1.1-6.1); Lymphocytes # 1.7 K/mcL (0.6-4.6); Lymphocytes % 21.6 %; Mean Corpuscular HGB Conc 33.4 g/dL (31.6-35.5); Mean Corpuscular Hemoglobin 31.3 pg (28.0-33.3); Monocytes # 0.8 K/mcL (0.0-1.3); Platelet Count 111 K/mcL (140-400); Red Blood Count 3.86 M/mcL (4.19-5.50); Red Cell Distribution Width 15.3 % (11.5-14.5)
[2020-06-16 03:19] LABS: Alanine Aminotransferase 14 Units/L (7-52); Albumin 3.1 g/dL (3.5-5.7); Albumin/Globulin Ratio 1.3 (1.1-2.2); Alkaline Phosphatase 73 Units/L (34-104); Aspartate Amino Transferase 24 Units/L (13-39); BUN/Creatinine Ratio 11 (6-26); Bilirubin,Total 1.4 mg/dL (0.3-1.0); Blood Urea Nitrogen 15 mg/dL (8-23); Calcium 8.4 mg/dL (8.6-10.3); Carbon Dioxide 24 mEq/L (23-29); Chloride 108 mEq/L (98-107); Globulin 2.4 g/dL (2.4-3.5); Glucose 120 mg/dL (70-105); Osmolality,Calculated 292 (280-300); Potassium 3.6 mEq/L (3.5-5.1); Sodium 140 mEq/L (136-145); Total Protein 5.5 g/dL (6.4-8.9); eGFR For African Americans > 60 (> 60); eGFR For Non-African Americans 53 (> 60)
[2020-06-16] MEDS: Haloperidol Lactate 5 MG/ML VIAL IVP PRN (03:34)
[2020-06-16] MEDS: Insulin LISPRO 300 UNITS/3 ML VIAL SUBQ SCH (07:02)
[2020-06-16] MEDS: hydrALAZINE 25 MG TABLET PO SCH (07:28)
[2020-06-16] MEDS: allopurinoL 300 MG TABLET PO SCH (07:28)
[2020-06-16] MEDS: Apixaban 5 MG TABLET PO SCH (07:28)
[2020-06-16] MEDS: amLODIPine 5 MG TABLET PO SCH (07:28)
[2020-06-16] MEDS: Cholecalciferol (D-3) 1,000 UNIT (25MCG) TABLET PO SCH (07:28)
[2020-06-16] MEDS: lisinopriL 10 MG TABLET PO SCH (07:28)
[2020-06-16] MEDS: Furosemide 20 MG TABLET PO SCH (07:28)
[2020-06-16] MEDS: Metoprolol 100 MG TABLET PO SCH (07:29)
[2020-06-16 10:18] VITALS: BP 143/76
== END 2020-06-16 11:05 | DRG 280 ==
LOC: 2ANU 11:09 → EMEROOARM 11:09 → SUATTDRO 13:53 → 2ANU 14:59 → SUATTDRO 06-11 16:00
PROVIDERS: ADMIT Internal Medicine; ATTEND General Practice